=== PATIENT | male | born 1965 | race Hispanic/Latino ===

== ENCOUNTER 2019-01-16 20:10 | Inpatient (IN) | payer BC ==
[~2019-01-16] VITALS: Ht 167.6 cm; Wt 89.4 kg
[~2019-01-16 20:10] MED LIST: PROTONIX40 MG PO; Pantoprazole Sod IV
--- OUTSIDE RECORDS SUMMARY | 2019-01-16 20:15 | XMS REPORT | CCD ---
Author Author Auto Generated Organization [facility] Address Unknown Phone Unavailable Care Team Providers Care Telemetry Nurse Name Role Phone Eleanor Stafford CP Allergies, Adverse Reactions, Alerts Substance Reaction Status ibuprofen GI bleeding in 2009 Active penicillin Active Problem List Condition Effective Dates Status GI bleeding Active Medications Medication Instructions Start Date End Date Status pantoprazole 80 mg + 100 mL, Rate: 10 ml/hr, Infuse 04/16/2012 04/17/2012 Discontinued Sodium Chloride 0.9% over: 10 hr, Route: IV, kg, Total IV 100 mL Volume: 100, Start date: 04/16/12 23:46:00, Duration: 30 day, Stop date: 05/16/12 23:45:00 [place] 5/325 oral 1 tab, Route: PO, Drug Form: TAB, 04/17/2012 04/17/2012 Discontinued tablet Dosing Weight 82.273, kg, Q4H, PRN Pain, Start date: 04/17/12 9:32:00, Duration: 30 day, Stop date: 05/17/12 9:31:00 Tears Naturale 1 drp, Route: Each Affected Eye, 04/17/2012 04/17/2012 Discontinued TID, Drug form: SOLN, Start date: 04/17/12 13:00:00, Duration: 30 day, Stop date: 05/17/12 9:00:00 NS (Bolus) IV 1,000 1,000 mL, Rate: 1,000 ml/hr, Infuse 04/16/2012 04/17/2012 Discontinued mL over: 1 hr, Route: IV, kg, Total Volume: 1,000, Start date: 04/16/12 20:29:00, Duration: 30 day, Stop date: 05/16/12 20:28:00 NS (Bolus) IV 1,000 1,000 mL, Rate: 1,000 ml/hr, Infuse 04/16/2012 04/16/2012 Completed mL over: 1 hr, Route: IV, kg, Total Volume: 1,000, Start date: 04/16/12 22:34:00, Duration: 1 doses or times, Stop date: 04/16/12 23:33:00 Protonix 40 mg, Route: IVP, Drug form: INJ, 04/16/2012 04/16/2012 Completed ONCE, Dosing Weight 82.273, kg, Priority: STAT, Start date: 04/16/12 20:52:00, Stop date: 04/16/12 20:52:00 Vital Signs Most recent to oldest [Reference Range]: 1 2 3 Height 167.64 cm (04/16/2012 17:12:00) Temperature Oral [96.4-99.1 DegF] 98.2 DegF (04/17/2012 14:00:00) 98.1 DegF (04/17/2012 07:00:00) Systolic Blood Pressure [90-140 mmHg] 105 mmHg (04/17/2012 14:00:00) 105 mmHg (04/17/2012 07:00:00) 102 mmHg (04/17/2012 04:10:00) Diastolic Blood Pressure [60-90 mmHg] 63 mmHg (04/17/2012 14:00:00) 66 mmHg (04/17/2012 07:00:00) 65 mmHg (04/17/2012 04:10:00) Respiratory Rate [14-20 BRMIN] 18 BRMIN (04/17/2012 14:00:00) 20 BRMIN (04/17/2012 07:00:00) 18 BRMIN (04/17/2012 04:10:00) Peripheral Pulse Rate [60-100 bpm] 85 bpm (04/17/2012 14:00:00) 88 bpm (04/17/2012 07:00:00) 74 bpm (04/17/2012 04:10:00) Weight 82.273 kg (04/16/2012 17:12:00) Results URINALYSIS Most recent to oldest [Reference Range]: 1 2 3 UA Turbidity [Clear] Clear (04/16/2012 20:55:00) UA Color [Yellow] Yellow *NA* (04/16/2012 20:55:00) UA pH [5.0-8.0] 5.5 (04/16/2012 20:55:00) UA Spec Grav [<=1.030] 1.033 *NA* (04/16/2012 20:55:00) UA Glucose [Negative] Negative (04/16/2012 20:55:00) UA Blood [Negative] Negative (04/16/2012 20:55:00) UA Ketones [Negative] Negative *NA* (04/16/2012 20:55:00) UA Protein [Negative] Negative (04/16/2012 20:55:00) UA Urobilinogen [0.1-1.0 EU/dL] 0.2 EU/dL (04/16/2012 20:55:00) UA Bili [Negative] Negative *NA* (04/16/2012 20:55:00) UA Leuk Est [Negative] Negative (04/16/2012 20:55:00) UA Nitrite [Negative] Negative (04/16/2012 20:55:00) UA Sq Epi [Few /LPF] Rare /LPF (04/16/2012 20:55:00) Micro? Performed (04/16/2012 20:55:00) CHEMISTRY Most recent to oldest [Reference Range]: 1 2 3 Sodium Lvl [135-145 mEq/L] 144 mEq/L 1 (04/16/2012:15:00) Potassium Lvl [3.5-5.1 mEq/L] 3.9 mEq/L (04/16/2012 21:15:00) Chloride Lvl [95-109 mEq/L] 108 mEq/L (04/16/2012:15:00) CO2 [24-32 mEq/L] 24 mEq/L (04/16/2012 21:15:00) AGAP [10.0-20.0 mEq/L] 15.9 mEq/L (04/16/2012 21:15:00) Creatinine Lvl [0.5-1.4 mg/dL] 0.9 mg/dL (04/16/2012 21:15:00) eGFR 104 mL/min/1.73m2 2 *NA* (04/16/2012 21:15:00) BUN [7-22 mg/dL] 24 mg/dL *HI* (04/16/2012 21:15:00) B/C Ratio [6-25] 27 *HI* (04/16/2012:15:00) Glucose Lvl [70-99 mg/dL] 113 mg/dL 3 *HI* (04/16/2012:15:00) Total Protein [6.4-8.4 g/dL] 6.6 g/dL (04/16/2012:15:00) Albumin Lvl [3.5-5.0 g/dL] 3.8 g/dL (04/16/2012:15:00) Globulin [2.0-4.0 g/dL] 2.8 g/dL (04/16/2012:15:00) A/G Ratio [0.7-1.6] 1.4 (04/16/2012:15:00) Calcium Lvl [8.5-10.5 mg/dL] 8.0 mg/dL *LOW* (04/16/2012:15:00) ALT [0-65 unit/L] 27 unit/L (04/16/2012:15:00) AST [0-37 unit/L] 17 unit/L (04/16/2012:15:00) Alk Phos [39-136 unit/L] 78 unit/L (04/16/2012:15:00) Bili Total [0.2-1.3 mg/dL] 0.2 mg/dL (04/16/2012:15:00) 1Result Comment: Slightly lipemic sample. 2Result Comment: The eGFR is calculated using the CKD-EPI formula. In most young, healthy individuals the eGFR will be >90 mL/min/1.73m2. The eGFR declines with age. An eGFR of 60-89 may be normal in some populations, particularly the elderly, for whom the CKD-EPI formula has not been extensively validated. Use of the eGFR is not recommended in the following populations: Individuals with unstable creatinine concentrations, including patients and those with serious co-morbid conditions. Patients with extremes in muscle mass or diet. The data above are obtained from the National Kid[employer] Disease Education Program ( NKDEP) which additionally recommends that when the eGFR is used in patients with extremes of body mass index for purposes of drug dosing, the eGFR should be mul tiplied by the estimated BMI. 3Interpretive Data: Adult reference range values reflect the clinical guidelines of the [place] [employer]. HEMATOLOGY Most recent to oldest [Reference Range]: 1 2 3 WBC [3.7-10.4 K/CMM] 7.8 K/CMM (04/16/2012 21:15:00) RBC [4.70-6.10 M/CMM] 3.36 M/CMM *LOW* (04/16/2012:15:00) Hgb [14.0-18.0 g/dL] 8.5 g/dL *LOW* (04/17/2012 16:08:00) 8.9 g/dL *LOW* (04/17/2012 09:53:00) 8.2 g/dL *LOW* (04/17/2012 04:10:00) Hct [42.0-54.0 %] 23.8 % *LOW* (04/17/2012 16:08:00) 25.4 % *LOW* (04/17/2012 09:53:00) 23.3 % *LOW* (04/17/2012 04:10:00) MCV [80.0-94.0 fL] 89.3 fL (04/16/2012:15:00) MCH [27.0-31.0 pg] 31.6 pg *HI* (04/16/2012:15:00) MCHC [32.0-36.0 g/dL] 35.4 g/dL (04/16/2012:15:00) RDW [11.5-14.5 %] 12.3 % (04/16/2012:15:00) Platelet [133-450 K/CMM] 237 K/CMM (04/16/2012 21:15:00) MPV [7.4-10.4 fL] 8.7 fL (04/16/2012:15:00) Segs [45.0-75.0 %] 62.9 % (04/16/2012:15:00) Lymphocytes [20.0-40.0 %] 24.0 % (04/16/2012:15:00) Monocytes [2.0-12.0 %] 10.1 % (04/16/2012 21:15:00) Eosinophils [0.0-4.0 %] 2.2 % (04/16/2012 21:15:00) Basophils [0.0-1.0 %] 0.8 % (04/16/2012:15:00) Segs-Bands # [1.5-8.1 K/CMM] 4.8 K/CMM (04/16/2012:15:00) Lymphocytes # [1.0-5.5 K/CMM] 1.9 K/CMM (04/16/2012 21:15:00) Monocytes # [0.0-0.8 K/CMM] 0.8 K/CMM (04/16/2012 21:15:00) Eosinophils # [0.0-0.5 K/CMM] 0.2 K/CMM (04/16/2012:15:00) Basophils # [0.0-0.2 K/CMM] 0.1 K/CMM (04/16/2012 21:15:00) Polychrom [None Seen] Slight (04/16/2012:15:00) Hypochrom [None Seen] Slight (04/16/2012 21:15:00) Target Cell Occasional *NA* (04/16/2012:15:00) Neut Vac [None Seen] Slight *ABN* (04/16/2012:15:00) Large Plt [None Seen] Slight *ABN* (04/16/2012:15:00) PT [12.0-14.7 seconds] 14.6 seconds (04/17/2012 04:10:00) 12.4 seconds (04/16/2012 21:15:00) INR [0.85-1.17] 1.12 4 (04/17/2012 04:10:00) 0.90 5 (04/16/2012 21:15:00) PTT [22.9-35.8 seconds] 27.4 seconds 6 (04/17/2012 04:10:00) 27.7 seconds 7 (04/16/2012 21:15:00) 4Interpretive Data: RECOMMENDED RANGES FOR PROTIME INR: 2.0-3.0 for most medical and surgical thromboembolic states. 2.5-3.5 for artificial heart valves and recurrent embolism. INR SHOULD BE USED ONLY FOR PATIENTS ON STABLE ANTICOAGULANT THERAPY. 5Interpretive Data: RECOMMENDED RANGES FOR PROTIME INR: 2.0-3.0 for most medical and surgical thromboembolic states. 2.5-3.5 for artificial heart valves and recurrent embolism. INR SHOULD BE USED ONLY FOR PATIENTS ON STABLE ANTICOAGULANT THERAPY. 6Interpretive Data: Heparin Therapeutic Range: 57 - 92 Seconds 7Interpretive Data: Heparin Therapeutic Range: 57 - 92 Seconds IMMUNOLOGY Most recent to oldest [Reference Range]: 1 2 3 CDC-HIV 1/2 Ab [Negative] Negative *NA* (04/16/2012 17:22:00)
--- OUTSIDE RECORDS SUMMARY | 2019-01-16 20:15 | XMS REPORT | Continuity of Care Document ---
Author Author [employer] Organization [employer] Address Unknown Phone Unavailable Care Team Providers Care Pick Up Name Role Phone Run [employer] Unavailable Unavailable Problems Problem Status Onset Date Classification Date Reported Comments Source HEAD LAC Active 07/12/2018 [facility] Laceration without foreign body of scalp, initial encounter 07/12/2018 07/14/2018 [facility] Unspecified injury of head, initial encounter 07/12/2018 07/14/2018 [facility] Low back pain 07/12/2018 07/14/2018 [facility] Melena 11/11/2016 11/14/2016 [facility] GI BLEED Active 11/10/2016 [facility] F/U FROM HOSPITAL, YEARLY CHECK UP Active 05/04/2012 [facility] BLOOD IN STOOL Active 04/15/2012 [facility] Gastrointestinal hemorrhage (disorder) Resolved Problem 07/14/2018 [facility] GI bleeding Active Problem 04/19/2012 [facility] GASTROINTEST HEMORR NOS Active [facility] Medications Medication Details Route Status Patient Instructions Ordering Provider Order Date Source Acetaminophen 300 MG / Codeine Phosphate 30 MG Oral Tablet [Tylenol with Codeine #3] 1 tab, PO, Q6H, PRN Pain Score 4-6, X 5 day, # 30 tab, 0 Refill(s) Active 07/12/2018 [facility] Acetaminophen 325 MG / Hydrocodone Bitartrate 10 MG Oral Tablet [[place] 10/325] 1 tab, Route: PO, Drug Form: TAB, Dosing Weight 88.636, kg, ONCE, STAT, Start date: 07/12/18 10:14:00 MULE OPERATOR, Stop date: 07/12/18 10:14:00 CSTNotes: Do not exceed 4gm/day of acetaminophen. (Same as: [place] 325/10) Inactive 07/12/2018 [facility] pantoprazole 40 MG Enteric Coated Tablet [Protonix] 40 mg=1 tab, PO, Daily, # 30 tab, 0 Refill(s) Active 11/11/2016 [facility] Protonix 40 mg, Route: IVP, ONCE, Dosing Weight 88.636, kg, Priority: STAT, Start date: 11/11/16 0:35:00 CDT, Stop date: 11/11/16 0:35:00 CDT Inactive 11/11/2016 [facility] Tears Naturale 1 drp, Route: Each Affected Eye, TID, Drug form: SOLN, Start date: 04/17/12 13:00:00, Duration: 30 day, Stop date: 05/17/12 9:00:00 Each Affected Eye No Longer Active Rivera 04/17/2012 [facility] [place] 5/325 oral tablet 1 tab, Route: PO, Drug Form: TAB, Dosing Weight 82.273, kg, Q4H, PRN Pain, Start date: 04/17/12 9:32:00, Duration: 30 day, Stop date: 05/17/12 9:31:00 PO No Longer Active Rivera 04/17/2012 [facility] pantoprazole 80 mg + Sodium Chloride 0.9% IV 100 mL 100 mL, Rate: 10 ml/hr, Infuse over: 10 hr, Route: IV, kg, Total Volume: 100, Start date: 04/16/12 23:46:00, Duration: 30 day, Stop date: 05/16/12 23:45:00 IV No Longer Active Roel 04/17/2012 [facility] NS (Bolus) IV 1,000 mL 1,000 mL, Rate: 1,000 ml/hr, Infuse over: 1 hr, Route: IV, kg, Total Volume: 1,000, Start date: 04/16/12 22:34:00, Duration: 1 doses or times, Stop date: 04/16/12 23:33:00 IV No Longer Active Matthew 04/17/2012 [facility] Protonix 40 mg, Route: IVP, Drug form: INJ, ONCE, Dosing Weight 82.273, kg, Priority: STAT, Start date: 04/16/12 20:52:00, Stop date: 04/16/12 20:52:00 IVP No Longer Active Matthew 04/17/2012 [facility] NS (Bolus) IV 1,000 mL 1,000 mL, Rate: 1,000 ml/hr, Infuse over: 1 hr, Route: IV, kg, Total Volume: 1,000, Start date: 04/16/12 20:29:00, Duration: 30 day, Stop date: 05/16/12 20:28:00 IV No Longer Active Matthew 04/17/2012 [facility] Allergies, Adverse Reactions, Alerts Substance Category Reaction Severity Reaction type Status Date Reported Comments Source ibuprofen Assertion GI bleeding in 2009 Propensity to adverse reactions to drug Active [facility] penicillin Assertion Drug allergy Active [facility] Immunizations Immunization Date Given Site Status Last Updated Comments Source diphtheria/pertussis, acel/tetanus adult 07/12/2018 Right deltoid completed [place] [facility] Results Order Name Results Value Reference Range Date Interpretation Comments Source BLOOD BANK RESULTS ABO/Rh O POS 11/11/2016 [facility] CHEM PANEL A/G Ratio 1.1 0.7 - 1.6 11/11/2016 [facility] CHEM PANEL Globulin 3.5 2.7 - 4.2 11/11/2016 [facility] CHEM PANEL B/C Ratio 15 6 - 25 11/11/2016 [facility] CHEM PANEL AGAP 9.1 10.0 - 20.0 11/11/2016 [facility] CHEM PANEL Potassium Lvl 4.1 3.5 - 5.1 11/11/2016 [facility] CHEM PANEL CO2 26 24 - 32 11/11/2016 [facility] CHEM PANEL Chloride Lvl 107 95 - 109 11/11/2016 [facility] PANEL eGFR 79 11/11/2016 Result Comment: The eGFR is calculated using the [...] from the National Kidney Disease Education Program (NKDEP) which additionally recommends that when the eGFR is used in patients with extremes of body mass index for purposes of drug dosing, the eGFR should be multiplied by the estimated BMI. [facility] CHEM PANEL BUN 16 7 - 22 11/11/2016 [facility] CHEM PANEL Glucose Lvl 110 70 - 99 11/11/2016 [facility] CHEM PANEL Sodium Lvl 138 135 - 145 11/11/2016 [facility] CHEM PANEL Creatinine Lvl 1.10 0.50 - 1.40 11/11/2016 [facility] CHEM PANEL Total Protein 7.5 6.4 - 8.4 11/11/2016 [facility] CHEM PANEL Calcium Lvl 8.9 8.5 - 10.5 11/11/2016 [facility] CHEM PANEL Bili Total 0.8 0.2 - 1.3 11/11/2016 [facility] CHEM PANEL ALT 28 0 - 65 11/11/2016 [facility] CHEM PANEL Albumin Lvl 4.0 3.5 - 5.0 11/11/2016 [facility] CHEM PANEL Alk Phos 85 39 - 136 11/11/2016 [facility] CHEM PANEL AST 25 0 - 37 11/11/2016 [facility] CHEM PANEL Lipase Lvl 222 73 - 393 11/11/2016 [facility] HEMATOLOGY Basophils # 0.1 0.0 - 0.2 11/11/2016 [facility] HEMATOLOGY Eosinophils # 0.1 0.0 - 0.5 11/11/2016 [facility] HEMATOLOGY Segs-Bands # 3.6 1.5 - 8.1 11/11/2016 [facility] HEMATOLOGY Lymphocytes # 1.8 1.0 - 5.5 11/11/2016 [facility] HEMATOLOGY Monocytes # 0.6 0.0 - 0.8 11/11/2016 [facility] HEMATOLOGY Eosinophils 1.6 0.0 - 4.0 11/11/2016 [facility] HEMATOLOGY Basophils 0.9 0.0 - 1.0 11/11/2016 [facility] HEMATOLOGY Monocytes 9.9 2.0 - 12.0 11/11/2016 [facility] HEMATOLOGY Segs 58.1 45.0 - 75.0 11/11/2016 [facility] HEMATOLOGY Lymphocytes 29.5 20.0 - 40.0 11/11/2016 [facility] HEMATOLOGY INR 1.03 0.85 - 1.17 11/11/2016 [facility] HEMATOLOGY PT 13.7 12.0 - 14.7 11/11/2016 [facility] HEMATOLOGY PTT 30.3 22.9 - 35.8 11/11/2016 [facility] HEMATOLOGY WBC 6.2 3.7 - 10.4 11/11/2016 [facility] HEMATOLOGY MCV 89.1 80.0 - 94.0 11/11/2016 [facility] HEMATOLOGY Hgb 14.9 14.0 - 18.0 11/11/2016 [facility] HEMATOLOGY Hct 43.2 42.0 - 54.0 11/11/2016 [facility] HEMATOLOGY RBC 4.85 4.70 - 6.10 11/11/2016 [facility] HEMATOLOGY MPV 8.1 7.4 - 10.4 11/11/2016 [facility] MCH 30.7 27.0 - 31.0 11/11/2016 [facility] MCHC 34.5 32.0 - 36.0 11/11/2016 [facility] HEMATOLOGY RDW 13.5 11.5 - 14.5 11/11/2016 [facility] HEMATOLOGY Platelet 232 133 - 450 11/11/2016 [facility] URINE AND STOOL Occult Bld Stl Positive *ABN* (11/10/16 10:57 PM) Negative 11/11/2016 [facility] HEMATOLOGY Hct 23.8 42.0 - 54.0 04/17/2012 LOW [facility] HEMATOLOGY Hgb 8.5 14.0 - 18.0 04/17/2012 [facility] HEMATOLOGY Hgb 8.9 14.0 - 18.0 04/17/2012 [facility] HEMATOLOGY Hct 25.4 42.0 - 54.0 04/17/2012 [facility] HEMATOLOGY Hgb 8.2 14.0 - 18.0 04/17/2012 [facility] HEMATOLOGY Hct 23.3 42.0 - 54.0 04/17/2012 [facility] HEMATOLOGY PTT 27.4 22.9 - 35.8 04/17/2012 Normal <sup>6</sup>Interpretive Data: Heparin Therapeutic Range: 57 - 92 Seconds [facility] HEMATOLOGY INR 1.12 0.85 - 1.17 04/17/2012 Normal <sup>4</sup>Interpretive Data: RECOMMENDED RANGES FOR PROTIME INR:
2.0-3.0 for most medical and surgical thromboembolic states.
2.5-3.5 for artificial heart valves and recurrent embolism.

INR SHOULD BE USED ONLY FOR PATIENTS ON STABLE ANTICOAGULANT THERAPY. [facility] HEMATOLOGY PT 14.6 12.0 - 14.7 04/17/2012 Normal [facility] CHEMISTRY Alk Phos 78 39 - 136 04/17/2012 Normal [facility] CHEMISTRY ALT 27 0 - 65 04/17/2012 Normal [facility] CHEMISTRY Bili Total 0.2 0.2 - 1.3 04/17/2012 Normal [facility] CHEMISTRY AST 17 0 - 37 04/17/2012 Normal [facility] CHEMISTRY Total Protein 6.6 6.4 - 8.4 04/17/2012 Normal [facility] CHEMISTRY Albumin Lvl 3.8 3.5 - 5.0 04/17/2012 Normal [facility] CHEMISTRY eGFR 104 04/17/2012 NA <sup>2</sup>Result Comment: The eGFR is calculated using the CKD-EPI formula. In most young, healthy individuals the eGFR will be >90 mL/min/1.73m2. The eGFR declines with age. An eGFR of 60-89 may be normal in some populations, particularly the elderly, for whom the CKD-EPI formula has not been extensively validated. Use of the eGFR is not recommended in the following populations:& lt;br/>
Individuals with unstable creatinine concentrations, including patients and those with serious co-morbid conditions.

Patients with extremes in muscle mass or diet.

The data above are obtained from the National Kidney Disease Education Program (NKDEP) which additionally recommends that when the eGFR is used in patients with extremes of body mass index for purposes of drug dosing, the eGFR should be multiplied by the estimated BMI. [facility] CHEMISTRY Calcium Lvl 8.0 8.5 - 10.5 04/17/2012 LOW [facility] CHEMISTRY CO2 24 24 - 32 04/17/2012 Normal [facility] CHEMISTRY Chloride Lvl 108 95 - 109 04/17/2012 Normal [facility] CHEMISTRY Potassium Lvl 3.9 3.5 - 5.1 04/17/2012 Normal [facility] CHEMISTRY BUN 24 7 - 22 04/17/2012 HI [facility] CHEMISTRY Sodium Lvl 144 135 - 145 04/17/2012 Normal <sup>1</sup>Result Comment: Slightly lipemic sample. [facility] CHEMISTRY Creatinine Lvl 0.9 0.5 - 1.4 04/17/2012 Normal [facility] CHEMISTRY Glucose Lvl 113 70 - 99 04/17/2012 HI <sup>3</sup>Interpretive Data: Adult reference range values reflect the clinical guidelines
of the [place] [employer]. [facility] CHEMISTRY A/G Ratio 1.4 0.7 - 1.6 04/17/2012 Normal [facility] CHEMISTRY Globulin 2.8 2.0 - 4.0 04/17/2012 Normal [facility] CHEMISTRY AGAP 15.9 10.0 - 20.0 04/17/2012 Normal [facility] CHEMISTRY B/C Ratio 27 6 - 25 04/17/2012 HI [facility] HEMATOLOGY Large Plt Slight *ABN* (04/16/2012 21:15:00) None Seen 04/17/2012 ABN [facility] HEMATOLOGY Neut Vac Slight *ABN* (04/16/2012 21:15:00) None Seen 04/17/2012 ABN [facility] HEMATOLOGY Segs 62.9 45.0 - 75.0 04/17/2012 Normal [facility] HEMATOLOGY Eosinophils 2.2 0.0 - 4.0 04/17/2012 Normal [facility] HEMATOLOGY Segs-Bands # 4.8 1.5 - 8.1 04/17/2012 Normal [facility] HEMATOLOGY Basophils 0.8 0.0 - 1.0 04/17/2012 Normal [facility] HEMATOLOGY Monocytes 10.1 2.0 - 12.0 04/17/2012 Normal [facility] HEMATOLOGY Lymphocytes 24.0 20.0 - 40.0 04/17/2012 Normal [facility] HEMATOLOGY Basophils # 0.1 0.0 - 0.2 04/17/2012 Normal [facility] HEMATOLOGY Hypochrom Slight (04/16/2012 21:15:00) None Seen 04/17/2012 Normal [facility] HEMATOLOGY Polychrom Slight (04/16/2012 21:15:00) None Seen 04/17/2012 Normal [facility] HEMATOLOGY Target Cell Occasional 04/17/2012 NA [facility] HEMATOLOGY Monocytes # 0.8 0.0 - 0.8 04/17/2012 Normal [facility] HEMATOLOGY Lymphocytes # 1.9 1.0 - 5.5 04/17/2012 Normal [facility] HEMATOLOGY Eosinophils # 0.2 0.0 - 0.5 04/17/2012 Normal [facility] HEMATOLOGY INR 0.90 0.85 - 1.17 04/17/2012 Normal <sup>5</sup>Interpretive Data: RECOMMENDED RANGES FOR PROTIME INR:
2.0-3.0 for most medical and surgical thromboembolic states.
2.5-3.5 for artificial heart valves and recurrent embolism.

INR SHOULD BE USED ONLY FOR PATIENTS ON STABLE ANTICOAGULANT THERAPY. [facility] HEMATOLOGY PTT 27.7 22.9 - 35.8 04/17/2012 Normal <sup>7</sup>Interpretive Data: Heparin Therapeutic Range: 57 - 92 Seconds [facility] HEMATOLOGY PT 12.4 12.0 - 14.7 04/17/2012 Normal [facility] HEMATOLOGY MCV 89.3 80.0 - 94.0 04/17/2012 Normal [facility] HEMATOLOGY RBC 3.36 4.70 - 6.10 04/17/2012 LOW [facility] HEMATOLOGY MCH 31.6 27.0 - 31.0 04/17/2012 HI [facility] HEMATOLOGY RDW 12.3 11.5 - 14.5 04/17/2012 Normal [facility] HEMATOLOGY MCHC 35.4 32.0 - 36.0 04/17/2012 Normal [facility] HEMATOLOGY WBC 7.8 3.7 - 10.4 04/17/2012 Normal [facility] HEMATOLOGY Platelet 237 133 - 450 04/17/2012 Normal [facility] HEMATOLOGY MPV 8.7 7.4 - 10.4 04/17/2012 Normal [facility] URINALYSIS UA Nitrite Negative (04/16/2012 20:55:00) Negative 04/17/2012 Normal [facility] URINALYSIS UA Leuk Est Negative (04/16/2012 20:55:00) Negative 04/17/2012 Normal [facility] URINALYSIS UA Sq Epi Rare /LPF (04/16/2012 20:55:00) Few 04/17/2012 Normal [facility] URINALYSIS Micro? Performed (04/16/2012 20:55:00) 04/17/2012 Normal [facility] URINALYSIS UA Urobilinogen 0.2 0.1 - 1.0 04/17/2012 Normal [facility] URINALYSIS UA Glucose Negative (04/16/2012 20:55:00) Negative 04/17/2012 Normal [facility] URINALYSIS UA Ketones Negative *NA* (04/16/2012 20:55:00) Negative 04/17/2012 [facility] URINALYSIS UA Spec Grav 1.033 <=1.030 04/17/2012 NA [facility] URINALYSIS UA pH 5.5 5.0 - 8.0 04/17/2012 Normal [facility] URINALYSIS UA Bili Negative *NA* (04/16/2012 20:55:00) Negative 04/17/2012 [facility] URINALYSIS UA Blood Negative (04/16/2012 20:55:00) Negative 04/17/2012 Normal [facility] URINALYSIS UA Protein Negative (04/16/2012 20:55:00) Negative 04/17/2012 Normal [facility] URINALYSIS UA Turbidity Clear (04/16/2012 20:55:00) Clear 04/17/2012 Normal [facility] URINALYSIS UA Color Yellow *NA* (04/16/2012 20:55:00) Yellow 04/17/2012 [facility] IMMUNOLOGY CDC-HIV 1/2 Ab Negative *NA* (04/16/2012 17:22:00) Negative 04/16/2012 [facility] Pathology Reports No Data Provided for This Section Diagnostic Reports Report Value Date Source Spine lumbar 2 or 3 views DX Study: Lumbar spine, 3 views Clinical Indication: Low back pain post fall Comparison: None FINDINGS: AP and crosstable lateral images demonstrate normal vertebral alignment. No fracture is identified. Intervertebral disc spaces are maintained. There are small marginal osteophytes at L3-L4 and L4-L5. Sacroiliac joints are not remarkable. IMPRESSION: No acute abnormality. SL: [id number] 07/12/2018 [facility] Sacrum/coccyx series DX Sacrum and coccyx 3 views: HISTORY: Fall. FINDINGS: Normal alignment of SI joints. Body of sacrum and coccyx appear intact without fracture or subluxation. SL: [id number] 07/12/2018 [facility] Pelvis AP DX Study: Pelvis, single view Clinical Indication: Pelvic pain post fall Comparison: None FINDINGS: Single frontal view of the pelvis shows no acute displaced bony fracture or joint dislocation. Soft tissues are unremarkable. IMPRESSION: No acute bony abnormality of the pelvis. SL: [id number] 07/12/2018 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 COMPARISON: None TECHNIQUE: CT images were obtained from the foramen magnum to the vertex without the use of intravenous contrast on a multidetector CT. Coronal and sagittal reconstructions were obtained. CT imaging performed at this location utilizes radiation dose optimization techniques which include one or more of the following: -Automated exposure control -Adjustment of the mA and/or kV according to patient size -Use of iterative reconstruction technique CT Radiation Dose DLP 982.82 mGy-cm FINDINGS: BRAIN PARENCHYMA: There are normal foster-white interfaces, sulci and gyri. There is no mass effect or midline shift. There is no extra-axial fluid collection, intraventricular or intraparenchymal hemorrhage. The sella and pineal regions are normal. The skull base, cerebellum and brainstem are normal. VENTRICLES: The ventricles are normal in size and configuration. The basilar cisterns are normal. ORBITS, MASTOIDS AND PARANASAL SINUSES: The visualized orbits are normal. The paranasal sinuses are normal. The mastoid air cells are clear. SKULL: Posterior soft tissue swelling . There is subcutaneous emphysema in this region. The calvaria appears intact. There is no acute fracture. If there is further concern for intracranial pathology or acute stroke, MRI of the brain may be performed for complete assessment. IMPRESSION: No acute intracranial bleed, midline shift or mass effect. SL: [id number] 07/12/2018 [facility] Spine cervical wo contrast CT Study: Spine cervical wo contrast CT Clinical Indication: Neck pain post fall Comparison: None Technique: Multiple axial CT images of the cervical spine were performed without the administration of intravenous contrast. Coronal and sagittal reconstructions were obtained. CT Radiation Dose DLP 720.41 mGy-cm FINDINGS: Anatomic alignment is maintained across the cervical spine. No acute fracture or dislocation is seen. Scattered mild degenerative disc disease and facet arthrosis of the cervical spine is seen. There is no spinal canal stenosis or neural foraminal narrowing. Paravertebral soft tissues are unremarkable. The lung apices are clear. IMPRESSION: 1. No acute bony abnormality of the cervical spine. SL: [id number] 07/12/2018 [facility] Chest 1view DX EXAM: Chest 1view DX DATE: 07/12/2018 10:13 MULE OPERATOR INDICATION: Trauma - fall COMPARISON: 02/08/2010. IMPRESSION: Stable cardiac silhouette and mediastinum. No focal consolidation, significant pleural effusion or pneumothorax. SL: [id number] 07/12/2018 [facility] Consultation Notes No Data Provided for This Section Discharge Summaries No Data Provided for This Section History and Physicals No Data Provided for This Section Vital Signs Vital Sign Value Date Comments Source Systolic (mm Hg) 116 07/12/2018 [facility] Diastolic (mm Hg) 79 07/12/2018 [facility] Respitory Rate 16 07/12/2018 [facility] Heart Rate 80 07/12/2018 [facility] Temperature Oral (F) 98 F 07/12/2018 [facility] Height 167.64 cm 07/12/2018 [facility] Weight 88.636 07/12/2018 [facility] BMI Calculated 31.54 07/12/2018 [facility] Respitory Rate 18 07/12/2018 [facility] Heart Rate 76 07/12/2018 [facility] Systolic (mm Hg) 129 07/12/2018 [facility] Diastolic (mm Hg) 85 07/12/2018 [facility] Temperature Oral (F) 98.0 F 07/12/2018 [facility] Respitory Rate 12 11/11/2016 [facility] Temperature Oral (F) 98 F 11/11/2016 [facility] Systolic (mm Hg) 122 11/11/2016 [facility] Diastolic (mm Hg) 91 11/11/2016 [facility] Systolic (mm Hg) 126 11/11/2016 [facility] Diastolic (mm Hg) 68 11/11/2016 [facility] Respitory Rate 10 11/11/2016 [facility] BMI Calculated 31.54 11/11/2016 [facility] Weight 88.636 11/11/2016 [facility] Height 167.64 cm 11/11/2016 [facility] Respitory Rate 18 11/11/2016 [facility] Temperature Oral (F) 98.4 F 11/11/2016 [facility] Heart Rate 62 11/11/2016 [facility] Systolic (mm Hg) 130 11/11/2016 [facility] Diastolic (mm Hg) 81 11/11/2016 [facility] Systolic (mm Hg) 105 04/17/2012 [facility] Respitory Rate 18 04/17/2012 [facility] Heart Rate 85 04/17/2012 [facility] Temperature Oral (F) 98.2 F 04/17/2012 [facility] Diastolic (mm Hg) 63 04/17/2012 [facility] Diastolic (mm Hg) 66 04/17/2012 [facility] Temperature Oral (F) 98.1 F 04/17/2012 [facility] Heart Rate 88 04/17/2012 [facility] Respitory Rate 20 04/17/2012 [facility] Systolic (mm Hg) 105 04/17/2012 [facility] Heart Rate 74 04/17/2012 [facility] Respitory Rate 18 04/17/2012 [facility] Systolic (mm Hg) 102 04/17/2012 [facility] Diastolic (mm Hg) 65 04/17/2012 [facility] Weight 82.273 04/16/2012 [facility] Height 167.64 cm 04/16/2012 [facility] Encounters Location Location Details Encounter Type Encounter Number Reason For Visit Attending Provider ADM Date DC Date Status Source [facility] OU [id number] SHELBY BURRIS 04/16/2012 04/17/2012 Discharged [facility] Emergency [id number] Reejan Matthew 11/11/2016 11/11/2016 [facility] Emergency [id number] Cat Rachel 07/12/2018 07/12/2018 [facility] Outpatient [id number] F/U FROM HOSPITAL, YEARLY CHECK UP ELSI Pulido [facility] Procedures No Data Provided for This Section Assessment and Plan No Data Provided for This Section Plan of Care No Data Provided for This Section Social History Social History Date Source Social History TypeResponse Smoking Status Never smoker; Ready to change: No; Concerns about tobacco use in household: No; Exposure to Tobacco Smoke None; Cigarette Smoking Last 365 Days No; Reg Smoking Cessation Counseling No entered on: 07/12/18 07/12/2018 [facility] Family History No Data Provided for This Section Advance Directives No Data Provided for This Section Functional Status No Data Provided for This Section
--- OUTSIDE RECORDS SUMMARY | 2019-01-16 20:16 | XMS REPORT | Summary of Care ---
Author Author [facility] Organization [facility] Address Unknown Phone Unavailable Encounter HQ Cordelia(FIN) [id number] Date(s): 07/12/18 - 07/12/18 [facility] [address] [place] [address]- [phone] Encounter Diagnosis Laceration of scalp (Discharge Diagnosis) - 07/12/18 Acute head injury (Discharge Diagnosis) - 07/12/18 Lower back pain (Discharge Diagnosis) - 07/12/18 Discharge Disposition: Home or Self Care Attending Physician: Mary Rachel DO Vital Signs Most recent to 1 2 oldest [Reference Range]: Height 167.64 cm (07/12/18 9:58 AM) Temperature Oral 98 DegF 98.0 DegF [96.4-99.1 DegF] (07/12/18 2:58 PM) (07/12/18 9:58 AM) Blood Pressure 116/79 mmHg 129/85 mmHg [90-140/60-90 mmHg] (07/12/18 2:58 PM) (07/12/18 9:58 AM) Respiratory Rate 16 BRMIN 18 BRMIN [14-20 BRMIN] (07/12/18 2:58 PM) (07/12/18 9:58 AM) Peripheral Pulse 80 bpm 76 bpm Rate [60-100 bpm] (07/12/18 2:58 PM) (07/12/18 9:58 AM) Weight 88.636 kg (07/12/18 9:58 AM) Body Mass Index 31.54 m2 (07/12/18 9:58 AM) Problem List Condition Effective Dates Status Health Status Informant GI bleed(Confirmed) Resolved GI Active bleeding(Confirmed) Allergies, Adverse Reactions, Alerts Substance Reaction Severity Status ibuprofen GI bleeding in 2009 Active penicillin Active Medications [place] 10/325 oral tablet 1 tab, Route: PO, Drug Form: TAB, Dosing Weight 88.636, kg, ONCE, STAT, Start da te: 07/12/18 10:14:00 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 (Same as: [place] 325/10) Start Date: 07/12/18 Stop Date: 07/12/18 Status: Completed Tylenol with Codeine #3 oral tablet 1 tab, PO, Q6H, PRN Pain Score 4-6, X 5 day, # 30 tab, 0 Refill(s) Start Date: 07/12/18 Stop Date: 07/17/18 Status: Ordered Results No data available for this section Immunizations Given and Recorded Vaccine Date Status Refusal Reason diphtheria/pertussis, acel/tetanus adult 07/12/18 Given Procedures No data available for this section Social History Social History Type Response Smoking Status Never smoker; Ready to change: No; Concerns about tobacco use in household: No; Exposure to Tobacco Smoke None; Cigarette Smoking Last 365 Days No; Reg Smoking Cessation Counseling No entered on: 07/12/18 Assessment and Plan No data available for this section
--- OUTSIDE RECORDS SUMMARY | 2019-01-16 20:16 | XMS REPORT ---
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 Allergies, Adverse Reactions, Alerts Allergy Name Allergy Type Status Severity Reaction(s) Onset Date Inactive Date Treating Clinician Comments Penicillins DA Active U 2018-09-06 00:00:00 Penicillins DA Active U 2010-02-04 00:00:00 Medications This patient has no known medications. Encounters Start Date/Time End Date/Time Encounter Type Admission Type Attending Clinicians Care Facility Care Department Encounter ID 2018-07-12 09:56:00 2018-07-12 09:56:00 Emergency [id number]
--- NOTE | 2019-01-16 20:45 | NUR ---
PT HAD A MODERATE SIZED BM, NOTED TO BE DARK/TARRY AND FOUL SMELLING, COLLECTED SPECIMEN FOR OCCULT STOOL AND NOTIFIED DR. VALDES AT THIS TIME.
[2019-01-16 21:12] LABS: BASOPHILS # (AUTO) 0.1 (0.0-0.1); BASOPHILS % 0.8 % (0.0-1.0); EOSINOPHILS # (AUTO) 0.1 (0.0-0.4); EOSINOPHILS % 0.9 % (0.0-6.0); HEMATOCRIT 29.4 % (38.2-49.6); HEMOGLOBIN 9.8 g/dL (14.0-18.0); LYMPHOCYTES # (AUTO) 2.2 (1.0-3.2); LYMPHOCYTES % 29.5 % (18.0-39.1); MEAN CORPUSCULAR HEMOGLOBIN 30.2 pg (28-32); MEAN CORPUSCULAR HGB CONC 33.3 g/dL (31-35); MEAN CORPUSCULAR VOLUME 90.7 fL (81-99); MONOCYTES # (AUTO) 0.5 (0.2-0.8); MONOCYTES % 7.2 % (4.4-11.3); NEUTROPHILS # (AUTO) 4.6 (2.1-6.9); NEUTROPHILS % 60.9 % (38.7-80.0); PLATELET COUNT 257 x10e3/uL (140-360); RED BLOOD COUNT 3.24 x10e6/uL (4.3-5.7); RED CELL DISTRIBUTION WIDTH 13.3 % (11.7-14.4)
[2019-01-16 21:27] LABS: ALANINE AMINOTRANSFERASE 19 IU/L (0-55); ALBUMIN 3.6 g/dL (3.5-5.0); ALBUMIN/GLOBULIN RATIO 1.6 (0.8-2.0); ALKALINE PHOSPHATASE 58 IU/L (40-150); BLOOD UREA NITROGEN 33 mg/dL (7-26); BUN/CREATININE RATIO 38 (6-25); CALCIUM 8.2 mg/dL (8.4-10.2); CARBON DIOXIDE 23 mmol/L (22-29); CHLORIDE 109 mmol/L (98-107); CREATININE, SERUM 0.87 mg/dL (0.72-1.25); EST GLOMERULAR FILTRATION RATE > 60 ML/MIN (60-); GLUCOSE 106 mg/dL (74-118); SODIUM 140 mmol/L (136-145)
--- OUTSIDE RECORDS SUMMARY | 2019-01-16 22:22 | XMS REPORT | Continuity of Care Document ---
Author Author [facility] Organization [facility] Address Unknown Phone Unavailable Care Team Providers Care Business Unit Controller Name Role Phone [employer] Information [employer] Unavailable Unavailable Problems Problem Status Onset Date Classification Date Reported Comments Source HEAD LAC Active 07/12/2018 [facility] Laceration without foreign body of scalp, initial encounter 07/12/2018 07/14/2018 [facility] Unspecified injury of head, initial encounter 07/12/2018 07/14/2018 [facility] Low back pain 07/12/2018 07/14/2018 [facility] Melena 11/11/2016 11/14/2016 [facility] GI BLEED Active 11/10/2016 [facility] F/U FROM HOSPITAL, YEARLY CHECK UP Active 05/04/2012 [facility] BLOOD IN STOOL Active 04/15/2012 [facility] Gastrointestinal hemorrhage (disorder) Resolved Problem 07/14/2018 [facility] GI bleeding Active Problem 04/19/2012 [facility] GASTROINTEST HEMORR NOS Active [facility] Medications Medication Details Route Status Patient Instructions Ordering Provider Order Date Source Acetaminophen 300 MG / Codeine Phosphate 30 MG Oral Tablet [Tylenol with Codeine #3] 1 tab, PO, Q6H, PRN Pain Score 4-6, X 5 day, # 30 tab, 0 Refill(s) Active 07/12/2018 [facility] Acetaminophen 325 MG / Hydrocodone Bitartrate 10 MG Oral Tablet [[place] 10/325] 1 tab, Route: PO, Drug Form: TAB, Dosing Weight 88.636, kg, ONCE, STAT, Start date: 07/12/18 10:14:00 COOLING PAN TENDER, Stop date: 07/12/18 10:14:00 CSTNotes: Do not exceed 4gm/day of acetaminophen. (Same as: [place] 325/10) Inactive 07/12/2018 [facility] pantoprazole 40 MG Enteric Coated Tablet [Protonix] 40 mg=1 tab, PO, Daily, # 30 tab, 0 Refill(s) Active 11/11/2016 [facility] Protonix 40 mg, Route: IVP, ONCE, Dosing Weight 88.636, kg, Priority: STAT, Start date: 11/11/16 0:35:00 CDT, Stop date: 11/11/16 0:35:00 CDT Inactive 11/11/2016 [facility] Tears Naturale 1 drp, Route: Each Affected Eye, TID, Drug form: SOLN, Start date: 04/17/12 13:00:00, Duration: 30 day, Stop date: 05/17/12 9:00:00 Each Affected Eye No Longer Active Rivera 04/17/2012 [facility] T[place]um[place]h 5/325 oral tablet 1 tab, Route: PO, Drug Form: TAB, Dosing Weight 82.273, kg, Q4H, PRN Pain, Start date: 04/17/12 9:32:00, Duration: 30 day, Stop date: 05/17/12 9:31:00 PO No Longer Active Rivera 04/17/2012 [facility] pantoprazole 80 mg + Sodium Chloride 0.9% IV 100 mL 100 mL, Rate: 10 ml/hr, Infuse over: 10 hr, Route: IV, kg, Total Volume: 100, Start date: 04/16/12 23:46:00, Duration: 30 day, Stop date: 05/16/12 23:45:00 IV No Longer Active Roel 04/17/2012 [facility] NS (Bolus) IV 1,000 mL 1,000 mL, Rate: 1,000 ml/hr, Infuse over: 1 hr, Route: IV, kg, Total Volume: 1,000, Start date: 04/16/12 22:34:00, Duration: 1 doses or times, Stop date: 04/16/12 23:33:00 IV No Longer Active Matthew 04/17/2012 [facility] Protonix 40 mg, Route: IVP, Drug form: INJ, ONCE, Dosing Weight 82.273, kg, Priority: STAT, Start date: 04/16/12 20:52:00, Stop date: 04/16/12 20:52:00 IVP No Longer Active Matthew 04/17/2012 [facility] NS (Bolus) IV 1,000 mL 1,000 mL, Rate: 1,000 ml/hr, Infuse over: 1 hr, Route: IV, kg, Total Volume: 1,000, Start date: 04/16/12 20:29:00, Duration: 30 day, Stop date: 05/16/12 20:28:00 IV No Longer Active Matthew 04/17/2012 [facility] Allergies, Adverse Reactions, Alerts Substance Category Reaction Severity Reaction type Status Date Reported Comments Source ibuprofen Assertion GI bleeding in 2009 Propensity to adverse reactions to drug Active [facility] penicillin Assertion Drug allergy Active [facility] Immunizations Immunization Date Given Site Status Last Updated Comments Source diphtheria/pertussis, acel/tetanus adult 07/12/2018 Right deltoid completed [place] [facility] Results Order Name Results Value Reference Range Date Interpretation Comments Source BLOOD BANK RESULTS ABO/Rh O POS 11/11/2016 [facility] CHEM PANEL A/G Ratio 1.1 0.7 - 1.6 11/11/2016 [facility] CHEM PANEL Globulin 3.5 2.7 - 4.2 11/11/2016 [facility] CHEM PANEL B/C Ratio 15 6 - 25 11/11/2016 [facility] CHEM PANEL AGAP 9.1 10.0 - 20.0 11/11/2016 [facility] CHEM PANEL Potassium Lvl 4.1 3.5 - 5.1 11/11/2016 [facility] CHEM PANEL CO2 26 24 - 32 11/11/2016 [facility] CHEM PANEL Chloride Lvl 107 95 - 109 11/11/2016 [facility] PANEL eGFR 79 11/11/2016 Result Comment: The [...] should be multiplied by the estimated BMI. [facility] CHEM PANEL BUN 16 7 - [...] Lipase Lvl 222 73 - 393 11/11/2016 [facility] HEMATOLOGY Basophils # 0.1 0.0 - 0.2 11/11/2016 [facility] HEMATOLOGY Eosinophils # 0.1 0.0 - 0.5 11/11/2016 [facility] HEMATOLOGY Segs-Bands # 3.6 1.5 - 8.1 11/11/2016 [facility] HEMATOLOGY Lymphocytes # 1.8 1.0 - 5.5 11/11/2016 [facility] HEMATOLOGY Monocytes # 0.6 0.0 - 0.8 11/11/2016 [facility] HEMATOLOGY Eosinophils 1.6 0.0 - 4.0 11/11/2016 [facility] HEMATOLOGY Basophils 0.9 0.0 - 1.0 11/11/2016 [facility] HEMATOLOGY Monocytes 9.9 2.0 - 12.0 11/11/2016 [facility] HEMATOLOGY Segs 58.1 45.0 - 75.0 11/11/2016 [facility] HEMATOLOGY Lymphocytes 29.5 20.0 - 40.0 11/11/2016 [facility] HEMATOLOGY INR 1.03 0.85 - 1.17 11/11/2016 [facility] HEMATOLOGY PT 13.7 12.0 - 14.7 11/11/2016 [facility] HEMATOLOGY PTT 30.3 22.9 - 35.8 11/11/2016 [facility] HEMATOLOGY WBC 6.2 3.7 - 10.4 11/11/2016 [facility] HEMATOLOGY MCV 89.1 80.0 - 94.0 11/11/2016 [facility] HEMATOLOGY Hgb 14.9 14.0 - 18.0 11/11/2016 [facility] HEMATOLOGY Hct 43.2 42.0 - 54.0 11/11/2016 [facility] HEMATOLOGY RBC 4.85 4.70 - 6.10 11/11/2016 [facility] HEMATOLOGY MPV 8.1 7.4 - 10.4 11/11/2016 [facility] MCH 30.7 27.0 - 31.0 11/11/[address] [facility] MCHC 34.5 32.0 - 36.0 11/11/2016 [facility] HEMATOLOGY RDW 13.5 11.5 - 14.5 11/11/2016 [facility] HEMATOLOGY Platelet 232 133 - 450 11/11/2016 [facility] URINE AND STOOL Occult Bld Stl Positive *ABN* (11/10/16 10:57 PM) Negative 11/11/2016 [facility] HEMATOLOGY Hct 23.8 42.0 - 54.0 04/17/2012 LOW [facility] HEMATOLOGY Hgb 8.5 14.0 - 18.0 04/17/2012 [facility] HEMATOLOGY Hgb 8.9 14.0 - 18.0 04/17/2012 [facility] HEMATOLOGY Hct 25.4 42.0 - 54.0 04/17/2012 [facility] HEMATOLOGY Hgb 8.2 14.0 - 18.0 04/17/2012 [facility] HEMATOLOGY Hct 23.3 42.0 - 54.0 04/17/2012 [facility] HEMATOLOGY PTT 27.4 22.9 - 35.8 04/17/2012 Normal <sup>6</sup>Interpretive Data: Heparin Therapeutic Range: 57 - 92 Seconds [facility] HEMATOLOGY INR 1.12 0.85 - 1.17 04/17/2012 Normal <sup>4</sup>Interpretive Data: RECOMMENDED RANGES FOR PROTIME INR:
2.0-3.0 for most medical and surgical thromboembolic states.
2.5-3.5 for artificial heart valves and recurrent embolism.

INR SHOULD BE USED ONLY FOR PATIENTS ON STABLE ANTICOAGULANT THERAPY. [facility] HEMATOLOGY PT 14.6 12.0 - 14.7 04/17/2012 Normal [facility] CHEMISTRY Alk Phos 78 39 - 136 04/17/2012 Normal [facility] CHEMISTRY ALT 27 0 - 65 04/17/2012 Normal [facility] CHEMISTRY Bili Total 0.2 0.2 - 1.3 04/17/2012 Normal [facility] CHEMISTRY AST 17 0 - 37 04/17/2012 Normal [facility] CHEMISTRY Total Protein 6.6 6.4 - 8.4 04/17/2012 Normal [facility] CHEMISTRY Albumin Lvl 3.8 3.5 - 5.0 04/17/2012 Normal [facility] CHEMISTRY eGFR 104 04/17/2012 NA <sup>2</sup>Result Comment: [...] should be multiplied by the estimated BMI. [facility] CHEMISTRY Calcium Lvl 8.0 8.5 - 10.5 04/17/2012 LOW [facility] CHEMISTRY CO2 24 24 - 32 04/17/2012 Normal [facility] CHEMISTRY Chloride Lvl 108 95 - 109 04/17/2012 Normal [facility] CHEMISTRY Potassium Lvl 3.9 3.5 - 5.1 04/17/2012 Normal [facility] CHEMISTRY BUN 24 7 - 22 04/17/2012 HI [facility] CHEMISTRY Sodium Lvl 144 135 - 145 04/17/2012 Normal <sup>1</sup>Result Comment: Slightly lipemic sample. [facility] CHEMISTRY Creatinine Lvl 0.9 0.5 - 1.4 04/17/2012 Normal [facility] CHEMISTRY Glucose Lvl 113 70 - 99 04/17/2012 HI <sup>3</sup>Interpretive Data: Adult reference range values reflect the clinical guidelines
of the [place] [employer]. [facility] CHEMISTRY A/G Ratio 1.4 0.7 - 1.6 04/17/2012 Normal [facility] CHEMISTRY Globulin 2.8 2.0 - 4.0 04/17/2012 Normal [facility] CHEMISTRY AGAP 15.9 10.0 - 20.0 04/17/2012 Normal [facility] CHEMISTRY B/C Ratio 27 6 - 25 04/17/2012 HI [facility] HEMATOLOGY Large Plt Slight *ABN* (04/16/2012 21:15:00) None Seen 04/17/2012 ABN [facility] HEMATOLOGY Neut Vac Slight *ABN* (04/16/2012 21:15:00) None Seen 04/17/2012 ABN [facility] HEMATOLOGY Segs 62.9 45.0 - 75.0 04/17/2012 Normal [facility] HEMATOLOGY Eosinophils 2.2 0.0 - 4.0 04/17/2012 Normal [facility] HEMATOLOGY Segs-Bands # 4.8 1.5 - 8.1 04/17/2012 Normal [facility] HEMATOLOGY Basophils 0.8 0.0 - 1.0 04/17/2012 Normal [facility] HEMATOLOGY Monocytes 10.1 2.0 - 12.0 04/17/2012 Normal [facility] HEMATOLOGY Lymphocytes 24.0 20.0 - 40.0 04/17/2012 Normal [facility] HEMATOLOGY Basophils # 0.1 0.0 - 0.2 04/17/2012 Normal [facility] HEMATOLOGY Hypochrom Slight (04/16/2012 21:15:00) None Seen 04/17/2012 Normal [facility] HEMATOLOGY Polychrom Slight (04/16/2012 21:15:00) None Seen 04/17/2012 Normal [facility] HEMATOLOGY Target Cell Occasional 04/17/2012 NA [facility] HEMATOLOGY Monocytes # 0.8 0.0 - 0.8 04/17/2012 Normal [facility] HEMATOLOGY Lymphocytes # 1.9 1.0 - 5.5 04/17/2012 Normal [facility] HEMATOLOGY Eosinophils # 0.2 0.0 - 0.5 04/17/2012 Normal [facility] HEMATOLOGY INR 0.90 0.85 - 1.17 04/17/2012 Normal <sup>5</sup>Interpretive Data: RECOMMENDED RANGES FOR PROTIME INR:
2.0-3.0 for most medical and surgical thromboembolic states.
2.5-3.5 for artificial heart valves and recurrent embolism.

INR SHOULD BE USED ONLY FOR PATIENTS ON STABLE ANTICOAGULANT THERAPY. [facility] HEMATOLOGY PTT 27.7 22.9 - 35.8 04/17/2012 Normal <sup>7</sup>Interpretive Data: Heparin Therapeutic Range: 57 - 92 Seconds [facility] HEMATOLOGY PT 12.4 12.0 - 14.7 04/17/2012 Normal [facility] HEMATOLOGY MCV 89.3 80.0 - 94.0 04/17/2012 Normal [facility] HEMATOLOGY RBC 3.36 4.70 - 6.10 04/17/2012 LOW [facility] HEMATOLOGY MCH 31.6 27.0 - 31.0 04/17/2012 HI [facility] HEMATOLOGY RDW 12.3 11.5 - 14.5 04/17/2012 Normal [facility] HEMATOLOGY MCHC 35.4 32.0 - 36.0 04/17/2012 Normal [facility] HEMATOLOGY WBC 7.8 3.7 - 10.4 04/17/2012 Normal [facility] HEMATOLOGY Platelet 237 133 - 450 04/17/2012 Normal [facility] HEMATOLOGY MPV 8.7 7.4 - 10.4 04/17/2012 Normal [facility] URINALYSIS UA Nitrite Negative (04/16/2012 20:55:00) Negative 04/17/2012 Normal [facility] URINALYSIS UA Leuk Est Negative (04/16/2012 20:55:00) Negative 04/17/2012 Normal [facility] URINALYSIS UA Sq Epi Rare /LPF (04/16/2012 20:55:00) Few 04/17/2012 Normal [facility] URINALYSIS Micro? Performed (04/16/2012 20:55:00) 04/17/2012 Normal [facility] URINALYSIS UA Urobilinogen 0.2 0.1 - 1.0 04/17/2012 Normal [facility] URINALYSIS UA Glucose Negative (04/16/2012 20:55:00) Negative 04/17/2012 Normal [facility] URINALYSIS UA Ketones Negative *NA* (04/16/2012 20:55:00) Negative 04/17/2012 [facility] URINALYSIS UA Spec Grav 1.033 <=1.030 04/17/2012 NA [facility] URINALYSIS UA pH 5.5 5.0 - 8.0 04/17/2012 Normal [facility] URINALYSIS UA Bili Negative *NA* (04/16/2012 20:55:00) Negative 04/17/2012 [facility] URINALYSIS UA Blood Negative (04/16/2012 20:55:00) Negative 04/17/2012 Normal [facility] URINALYSIS UA Protein Negative (04/16/2012 20:55:00) Negative 04/17/2012 Normal [facility] URINALYSIS UA Turbidity Clear (04/16/2012 20:55:00) Clear 04/17/2012 Normal [facility] URINALYSIS UA Color Yellow *NA* (04/16/2012 20:55:00) Yellow 04/17/2012 [facility] IMMUNOLOGY CDC-HIV 1/2 Ab Negative *NA* (04/16/2012 17:22:00) Negative 04/16/2012 [facility] Pathology Reports No Data Provided for This [...] not remarkable. IMPRESSION: No acute abnormality. SL: [id number] 07/12/2018 [facility] Sacrum/coccyx series DX Sacrum and coccyx 3 views: HISTORY: Fall. FINDINGS: Normal alignment of SI joints. Body of sacrum and coccyx appear intact without fracture or subluxation. SL: [id number] 07/12/2018 [facility] Pelvis AP DX Study: Pelvis, single view Clinical Indication: Pelvic pain post fall Comparison: None FINDINGS: Single frontal view of the pelvis shows no acute displaced bony fracture or joint dislocation. Soft tissues are unremarkable. IMPRESSION: No acute bony abnormality of the pelvis. SL: [id number] 07/12/2018 [facility] Brain wo contrast CT Patient Name: ROMEO PICKERING : 1965; Age: 52 years Male MR: [id number] Study: Brain wo contrast CT 07/12/2018 10:13 AM COOLING PAN TENDER Clinical Indication: Head trauma - fall. COMPARISON: [...] shift or mass effect. SL: [id number] 07/12/2018 [facility] Spine cervical wo contrast CT Study: [...] bony abnormality of the cervical spine. SL: [id number] 07/12/2018 [facility] Chest 1view DX EXAM: Chest 1view DX DATE: 07/12/2018 10:13 CO[employer]ING PAN [employer]ER INDICATION: Trauma - fall COMPARISON: 02/08/2010. IMPRESSION: Stable cardiac silhouette and mediastinum. No focal consolidation, significant pleural effusion or pneumothorax. SL: [id number] 07/12/2018 [facility] Consultation Notes No Data Provided for This Section Discharge Summaries No Data Provided for This Section History and Physicals No Data Provided for This Section Vital Signs Vital Sign Value Date Comments Source Systolic (mm Hg) 116 07/12/2018 [facility] Diastolic (mm Hg) 79 07/12/2018 [facility] Respitory Rate 16 07/12/2018 [facility] Heart Rate 80 07/12/2018 [facility] Temperature Oral (F) 98 F 07/12/2018 [facility] Height 167.64 cm 07/12/2018 [facility] Weight 88.636 07/12/2018 [facility] BMI Calculated 31.54 07/12/2018 [facility] Respitory Rate 18 07/12/2018 [facility] Heart Rate 76 07/12/2018 [facility] Systolic (mm Hg) 129 07/12/2018 [facility] Diastolic (mm Hg) 85 07/12/2018 [facility] Temperature Oral (F) 98.0 F 07/12/2018 [facility] Respitory Rate 12 11/11/2016 [facility] Temperature Oral (F) 98 F 11/11/2016 [facility] Systolic (mm Hg) 122 11/11/2016 [facility] Diastolic (mm Hg) 91 11/11/2016 [facility] Systolic (mm Hg) 126 11/11/2016 [facility] Diastolic (mm Hg) 68 11/11/2016 [facility] Respitory Rate 10 11/11/2016 [facility] BMI Calculated 31.54 11/11/2016 [facility] Weight 88.636 11/11/2016 [facility] Height 167.64 cm 11/11/2016 [facility] Respitory Rate 18 11/11/2016 [facility] Temperature Oral (F) 98.4 F 11/11/2016 [facility] Heart Rate 62 11/11/2016 [facility] Systolic (mm Hg) 130 11/11/2016 [facility] Diastolic (mm Hg) 81 11/11/2016 [facility] Systolic (mm Hg) 105 04/17/2012 [facility] Respitory Rate 18 04/17/2012 [facility] Heart Rate 85 04/17/2012 [facility] Temperature Oral (F) 98.2 F 04/17/2012 [facility] Diastolic (mm Hg) 63 04/17/2012 [facility] Diastolic (mm Hg) 66 04/17/2012 [facility] Temperature Oral (F) 98.1 F 04/17/2012 [facility] Heart Rate 88 04/17/2012 [facility] Respitory Rate 20 04/17/2012 [facility] Systolic (mm Hg) 105 04/17/2012 [facility] Heart Rate 74 04/17/2012 [facility] Respitory Rate 18 04/17/2012 [facility] Systolic (mm Hg) 102 04/17/2012 [facility] Diastolic (mm Hg) 65 04/17/2012 [facility] Weight 82.273 04/16/2012 [facility] Height 167.64 cm 04/16/2012 [facility] Encounters Location Location Details Encounter Type Encounter Number Reason For Visit Attending Provider ADM Date DC Date Status Source [facility] OU [id number] SHELBY BURRIS 04/16/2012 04/17/[address] [facility] Emergency [id number] Reejan Matthew 11/11/2016 11/11/2016 [facility] Emergency [id number] Cat Rachel 07/12/2018 07/12/2018 [facility] Outpatient [id number] F/U FROM HOSPITAL, YEARLY CHECK UP ELSI Pulido [facility] Procedures No Data Provided for This Section [...] Cessation Counseling No entered on: 07/12/18 07/12/2018 [facility] Family History No Data Provided for This Section Advance Directives No Data Provided for This Section Functional Status No Data Provided for This Section
--- NOTE | 2019-01-16 22:50 | NUR ---
Pt transferred to room 298 via WC. Pt alert and oriented to name, place, time, and diagnosis: GI bleed. Skin warm and dry, no breakdowns noted. Denies pain or discomfort at this time. Lungs CTA. Pt stated >5 loose black stools today. Denies dysuria. No acute distress noted. Oriented to room. Med rec completed. Call gerber within reach. Bed low and locked. Will continue to monitor.
[2019-01-16 22:58] VITALS: BP 104/71
[2019-01-16 22:59] VITALS: BP 104/71
[2019-01-16 23:02] VITALS: BP 109/71
[2019-01-16] MEDS ORDERED: OMEPRAZOLE40 MG (23:16)
[2019-01-16] MEDS ORDERED: PANTOPRAZOLE 40 MG 10ML VIAL IV STA (23:50)
[2019-01-17] VITALS (13 sets, daily range): BP systolic 100–119; BP diastolic 63–80
[2019-01-17 02:32] LABS: BASOPHILS # (AUTO) 0.1 (0.0-0.1); BASOPHILS % 0.8 % (0.0-1.0); EOSINOPHILS # (AUTO) 0.1 (0.0-0.4); EOSINOPHILS % 1.1 % (0.0-6.0); HEMATOCRIT 24.5 % (38.2-49.6); HEMOGLOBIN 8.5 g/dL (14.0-18.0); LYMPHOCYTES % 30.7 % (18.0-39.1); MEAN CORPUSCULAR HEMOGLOBIN 31.1 pg (28-32); MEAN CORPUSCULAR HGB CONC 34.7 g/dL (31-35); MEAN CORPUSCULAR VOLUME 89.7 fL (81-99); MONOCYTES # (AUTO) 0.4 (0.2-0.8); MONOCYTES % 6.2 % (4.4-11.3); NEUTROPHILS # (AUTO) 3.9 (2.1-6.9); NEUTROPHILS % 60.4 % (38.7-80.0); PLATELET COUNT 207 x10e3/uL (140-360); RED BLOOD COUNT 2.73 x10e6/uL (4.3-5.7); RED CELL DISTRIBUTION WIDTH 13.3 % (11.7-14.4)
[2019-01-17 02:53] LABS: ANION GAP 9.6 mmol/L (8-16); BLOOD UREA NITROGEN 31 mg/dL (7-26); BUN/CREATININE RATIO 40 (6-25); CALCIUM 7.8 mg/dL (8.4-10.2); CARBON DIOXIDE 22 mmol/L (22-29); CHLORIDE 110 mmol/L (98-107); CREATININE, SERUM 0.77 mg/dL (0.72-1.25); EST GLOMERULAR FILTRATION RATE > 60 ML/MIN (60-); GLUCOSE 118 mg/dL (74-118); MAGNESIUM 2.6 MG/DL (1.3-2.1); PHOSPHORUS 2.7 MG/DL (2.3-4.7); POTASSIUM 3.6 mmol/L (3.5-5.1); SODIUM 138 mmol/L (136-145)
[2019-01-17 03:05] LABS: FERRITIN 22.99 ng/mL (21.81-274.66)
--- NOTE | 2019-01-17 06:49 | NUR ---
BS rounds completed with morning nurse. Pt c/o tiredness. Encourage Pt to get slowly to prevent dizziness or syncope. Pt is at an increased risk for fall. Pt educated to use the call light if they need to get up and needs assistance with any mobilization. Informed Pt being lethargy can be a side effect of GI bleeding, losing blood.
--- NOTE | 2019-01-17 07:30 | NUR ---
PT UP AMBULATING IN ROOM DENIES PAIN.
[2019-01-17] MEDS: PANTOPRAZOLE 40 MG 10ML VIAL IV SCH ×2 (09:00→22:36)
--- NOTE | 2019-01-17 12:15 | NUR ---
PT TRANSPORTED TO [place] VIA W/C
--- NOTE | 2019-01-17 14:00 | NUR ---
PT RETURNED TO ROOM VIA W/C.SPOKE WITH DR AYALA .OK FOR FULL LIQUID DIET
--- NOTE | 2019-01-17 14:21 | NUR ---
FULL LIQUID DIET GIVEN ,PT TOLERATING WELL
--- NOTE | 2019-01-17 14:45 | NUR ---
spoke with dr liu re;bleeding scan gave radiologist dr zarate number
--- NOTE | 2019-01-17 14:55 | Diagnostic Imaging Report ---
ADDENDUM #1 Dr. Reed from Surgery wanted clarification of the original report. Two salient findings are present. First, there is a vascular blush in the left mid abdomen that may be an enlarged left kidney or hypervascular mass. Second, in proximity to the inferior aspect of the hypervascular blush, is the site of origin of a small bowel bleed. The blood in the small bowel then moves along the vascular blush area before crossing the mid line and looping in small bowel in the right abdomen. The origin of the small bowel bleed is in the left lower quadrant just to the left of midline at about the level of the bifurcation. The extent of propagation of the bleed moving from the LLQ to the right abdomen indicates that the bleed is not in close proximity to the terminal ileum. Signed by: Dr. Nguyen Lancaster M.D. on 01/17/2019 4:55 PM ORIGINAL REPORT Tagged-RBC GI Bleed Study Clinical information: 53-year-old male with melena and positive guaiac test. Recent colonoscopy removed 3 polyps but no site of bleeding detected. Discussion: The patient's own red blood cells were labeled with 25 mCi of technetium-99m pertechnetate using the in vitro method (UltraTaWSO2). Dynamic images of the abdomen were obtained through 60 minutes. On the initial images, distribution of tracer activity appears physiologic throughout the abdomen except for what appears to be an enlarge left kidney or hypervascular mass. At about 20 minutes, tracer is seen in small bowel starting in the left lower quadrant and propagating along the hypervascular appearing mass and the through normal small bowel in the mid and right abdomen. Impression: No scan evidence of active gastrointestinal bleeding that begins in small bowel and propagates antegrade through small intestine, initially along a hypervascular mass in the left mid abdomen and then to the mid and right abdomen. Results called to Dr. John Robels at 2:40 pm on 01/17/2019. Signed by: Dr. Nguyen Lancaster M.D. on 01/17/2019 2:52 PM
--- NOTE | 2019-01-17 15:00 | NUR ---
SPKE WITH DR AYALA REQUESTING TO SPEAK WITH DR CLEMENS FOR SURGERY CONSULT
--- NOTE | 2019-01-17 15:15 | NUR ---
SPOKE WITH DR MERIDA ORDER CONSULT FOR SURGEON DR Joel REAGAN
--- NOTE | 2019-01-17 15:30 | NUR ---
SPOKE WITH DR ULLOA NO NEW ORDERS.
--- NOTE | 2019-01-17 15:33 | History and Physical ---
Mr. 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 CHIEF COMPLAINT: He presents to the emergency room with a complaint of black and tarry stools. HISTORY OF PRESENT ILLNESS: The patient reports this began the morning of the . He had no abdominal discomfort associated with it. PAST MEDICAL HISTORY: Significant for previous episodes of gastrointestinal bleeding, hospitalized here in 2016. Previous evaluations have not been revealing as to the source. He does not take any medications at all and certainly does not take any aspirin or nonsteroidal anti-inflammatory agents. He denies any hypertension or diabetes. He has had no previous surgical procedures. PERSONAL AND SOCIAL HISTORY: He does not smoke or drink. PHYSICAL EXAMINATION: GENERAL: At this time shows a pleasant, alert man, who is comfortable. VITAL SIGNS: Blood pressure 110/60, pulse 90 and regular. HEAD, EYES, EARS, NOSE, AND THROAT: Unremarkable. NECK: No jugular venous distention. THORAX: Heart sounds S1 and S2 are equal. No murmurs. LUNGS: Clear. ABDOMEN: Protuberant. Normal bowel sounds. Nontender. No masses. No organomegaly. EXTREMITIES: No cyanosis, clubbing, or edema. PERTINENT LABORATORY STUDIES: Show BUN 31 and creatinine 0.7. Hemoglobin 8.5, white count 6.4, and platelets 207,000. ASSESSMENT: 1. Gastrointestinal bleeding, source not clear. 2. Previous colonoscopy earlier this month with pathology reports not yet revealed. PLAN: Agree with current evaluation and we will monitor. He is going to have a nuclear bleeding scan later this morning. Further management based on clinical course. MD DURGA White/MAGDALENA /[id number] cc: MD John Palmer MD
--- NOTE | 2019-01-17 16:45 | NUR ---
DR ULLOA HERE SPOKE WITH PT REGARDING ,MORE LAB AND CT SCAN. PT TO BE TRANSFERRRED TO ICU [id number]
[2019-01-17] MEDS ORDERED: SODIUM CHLORIDE 0.9% 250ML 250 ML IV ONE ×2 (17:15→18:30)
[2019-01-17 17:36] LABS: BASOPHILS % 0.5 % (0.0-1.0); EOSINOPHILS # (AUTO) 0.1 (0.0-0.4); EOSINOPHILS % 0.6 % (0.0-6.0); HEMATOCRIT 21.6 % (38.2-49.6); HEMOGLOBIN 7.3 g/dL (14.0-18.0); LYMPHOCYTES % 24.6 % (18.0-39.1); MEAN CORPUSCULAR HEMOGLOBIN 30.8 pg (28-32); MEAN CORPUSCULAR HGB CONC 33.8 g/dL (31-35); MEAN CORPUSCULAR VOLUME 91.1 fL (81-99); MONOCYTES # (AUTO) 0.6 (0.2-0.8); MONOCYTES % 6.9 % (4.4-11.3); NEUTROPHILS # (AUTO) 5.3 (2.1-6.9); NEUTROPHILS % 66.5 % (38.7-80.0); PLATELET COUNT 219 x10e3/uL (140-360); RED BLOOD COUNT 2.37 x10e6/uL (4.3-5.7); RED CELL DISTRIBUTION WIDTH 13.7 % (11.7-14.4)
--- NOTE | 2019-01-17 18:02 | NUR ---
REPORT GIVEN TO ALEKSEY MCGINNIS IN ICU ,PT TRANSPORTED TO ICU RM 191,
[2019-01-17 18:18] LABS: INR 1.07; PROTHROMBIN TIME 14.4 seconds (11.9-14.5)
--- NOTE | 2019-01-17 18:19 | NUR ---
Patient to Room 191, VSS, alert, oriented via wheelchair. Call rec'd from Dr Joel Reed, orders rec'd to transfuse 2 PRBCs and then assess H&H. Bedside report given to RAHEL Jackson. Patient and family state understanding and have no questions.
--- NOTE | 2019-01-17 18:23 | Consultation ---
DATE OF CONSULTATION: 01/17/2019 REASON FOR CONSULTATION: GI bleed of unclear etiology. HISTORY OF PRESENT ILLNESS: The patient is a 53-year-old male, admitted yesterday through the emergency room complaining of hematochezia. He had noticed tarry stools, reason for which he came to the emergency room. The patient's history was that he underwent elsewhere by Dr. Walton, colonoscopy with polypectomy of three polyps two weeks ago. He does not know the results. The operative report is not available at the time of his examination by me. The patient's past history is significant for the fact that he has several episodes of lower GI bleed in the past and no source of bleeding has been found. History otherwise is unremarkable. He does not take any type of anticoagulation or aspirin. The patient is not a heavy drinker. Since admission, the patient had nuclear medicine scan, which was discussed by me with the radiologist, who interpreted report. The report reveals as per my phone conversation with her that there is a possible blush in the area of the kidney and there is a possible source of bleeding in the area of the jejunum, which is in close proximity to the left kidney. No active bleeding was seen. the right kidney was not visualized. This raises the possibility of a left renal mass, which could be possibly erosion into the small bowel. Currently, the patient is afebrile with stable vital signs. However, he recently just get up and felt lightheaded. The patient most recent set of vital signs reveals a 53-year-old male, who is in no acute distress. He is appears to be somewhat pale. The current vital signs pulse is 113, respiration 20, blood pressure 114/72, the oxygen saturation on room air is 96. The patient is awake and alert. Examination of the abdomen reveals a soft abdomen without any scars or palpable masses. It is nontender. There are no surgical scars. Examination of the rectum reveals no bright red blood. There is some trace of tarry stool. His admission labs have been reviewed as I am dictating the initial hemoglobin was 9,repeated 6:00 a.m. hemoglobin is 8 .Repeat Hgb is pending ASSESSMENT: Recurrent GI bleed of unclear etiology. The nuclear medicine scan findings have discussed with Dr Lancaster and I have asked her to clarify the findings .I have discussed the case with Doctor Escalona and Doctor M Robles The plan is to transfer the patient to ICU for closer monitoring. Last hematocrit was at 6:00 a.m., I am going to repeat it now and place him on an every 6 hours hemoglobin and hematocrit. I am ordering a stat CT scan of the abdomen and pelvis with IV contrast to evaluate the findings on the nuclear medicine scan. If he rebleeds again during the night, he will have to have an emergency arteriogram to evaluate for source of bleeding from the abdominal aorta into the gut.[facility] has been notified If he does not rebleed, then we are going to go ahead and proceed with an arteriogram to tomorrow morning to further evalaute him has recurrent GI bleed. The patient will be typed and cross-matched at all time for 4 units of blood and as I said before, he will be transferred to the ICU for closer monitoring. Will keep him NPO and start maintenace IV fluids. Thanks. MD MISAEL Teixeira/MAGDALENA /[id number] ROSALIND
--- NOTE | 2019-01-17 18:38 | Diagnostic Imaging Report ---
EXAMINATION: CT of the abdomen and pelvis with contrast. TECHNIQUE: Spiral CT images of the abdomen and pelvis were performed from the lung bases to the lesser trochanters after the intravenous administration of 100 cc of Isovue 370 and the oral administration of water. Coronal and sagittal reformatted images were obtained. COMPARISON: Nuclear medicine GI bleed study was reviewed. CLINICAL HISTORY:Suspected renal mass DISCUSSION: ABDOMEN/PELVIS: LOWER THORAX:Unremarkable. HEPATOBILIARY: Normal hepatic size and contour. No focal lesions. No intra or extrahepatic biliary ductal dilation. GALLBLADDER: No radio-opaque stones or sludge. No wall thickening. SPLEEN: No splenomegaly. PANCREAS: No focal masses or ductal dilatation. ADRENALS: No adrenal nodules. KIDNEYS/URETERS: No hydronephrosis or obstruction. No renal stones. No cystic or solid enhancing masses.. PELVIC ORGANS/BLADDER: Bladder is unremarkable. Dystrophic calcifications in the prostate. PERITONEUM/RETROPERITONEUM: No free air or fluid. LYMPH NODES: No intra-abdominal, retroperitoneal, pelvic or inguinal lymphadenopathy. VESSELS: The celiac trunk,superior and inferior mesenteric and bilateral renal arteries are patent The portal, superior mesenteric and splenic veins are patent. GI TRACT: No bowel dilation or evidence of obstruction. Appendix is well identified and normal in caliber. Well-circumscribed oval shaped hyperdense intraluminal density in the cecum may represent undigested pill material. No intraluminal bowel hyperdensity to suggest acute hemorrhage. BONES AND SOFT TISSUE: No aggressive lytic lesions. No soft tissue abnormalities. IMPRESSION: 1. No cystic or solid enhancing renal mass is identified. 2. No bowel intraluminal hyperdensity to suggest acute hemorrhage. Signed by: Dr. Rio Bolanos M.D. on 01/17/2019 6:35 PM
[2019-01-17] MEDS: LACTATED RINGER'S 1,000 ML IV SCH (18:46)
[2019-01-17] MEDS ORDERED: SODIUM CHLORIDE 0.9% 50ML 50 ML ONE (18:52)
[2019-01-17] MEDS ORDERED: IOPAMIDOL 370 MG/ML 200 ML INFUS..BTL INJ ONE (18:52)
[2019-01-17 20:41] LABS: BILIRUBIN,URINE NEGATIVE (NEGATIVE); CLARITY,URINE CLEAR (CLEAR); COLOR,URINE YELLOW (YELLOW); KETONES,URINE NEGATIVE (NEGATIVE); LEUKOCYTE ESTERASE ,URINE NEGATIVE (NEGATIVE); NITRITE,URINE NEGATIVE (NEGATIVE); PROTEIN,URINE DIPSTICK NEGATIVE (NEGATIVE); URINE UROBILINOGEN 0.2 mg/dL (0.2 - 1)
[2019-01-17 20:57] LABS: WBC,URINE (MAN) 0-5 /HPF (0-5)
[2019-01-18] VITALS (25 sets, daily range): BP systolic 96–131; BP diastolic 61–91
[2019-01-18] MEDS ORDERED: CYANOCOBALAMIN INJ 1,000 MCG/ML VIAL IM ONE
[2019-01-18] MEDS: LACTATED RINGER'S 1,000 ML IV SCH ×4 (01:45→20:57)
[2019-01-18 05:41] LABS: BASOPHILS # (AUTO) 0.1 (0.0-0.1); BASOPHILS % 0.7 % (0.0-1.0); EOSINOPHILS # (AUTO) 0.1 (0.0-0.4); EOSINOPHILS % 0.7 % (0.0-6.0); HEMATOCRIT 26.5 % (38.2-49.6); HEMOGLOBIN 9.1 g/dL (14.0-18.0); LYMPHOCYTES # (AUTO) 1.6 (1.0-3.2); MEAN CORPUSCULAR HEMOGLOBIN 30.8 pg (28-32); MEAN CORPUSCULAR HGB CONC 34.3 g/dL (31-35); MEAN CORPUSCULAR VOLUME 89.8 fL (81-99); MONOCYTES # (AUTO) 0.6 (0.2-0.8); MONOCYTES % 7.9 % (4.4-11.3); NEUTROPHILS # (AUTO) 4.8 (2.1-6.9); NEUTROPHILS % 67.3 % (38.7-80.0); PLATELET COUNT 183 x10e3/uL (140-360); RED BLOOD COUNT 2.95 x10e6/uL (4.3-5.7); RED CELL DISTRIBUTION WIDTH 13.8 % (11.7-14.4)
--- NOTE | 2019-01-18 05:42 | NUR ---
2u PRBC's given per order for Hgb of 7.3, no transfusion reaction noted, pt tolerated intake and VS remained stable. Per Dr. Krishna Robles, transfuse next 2u on hold if AM hgb <8. AM hgb reports 8.9. Pt no longer symptomatic at this time. VS stable & WNL at this time. Will continue to monitor.
[2019-01-18] MEDS: CYANOCOBALAMIN INJ 1,000 MCG/ML VIAL IM SCH ×2 (08:00→08:07)
[2019-01-18] MEDS: PANTOPRAZOLE 40 MG 10ML VIAL IV SCH ×2 (08:00→21:27)
[2019-01-18] MEDS ORDERED: SODIUM CHLORIDE 0.9% 250ML 250 ML IV ONE ×2 (10:45)
--- NOTE | 2019-01-18 18:01 | NUR ---
Dr. Joel Reed rounded this AM and ordered IR consult for abdominal arteriogram. Procedure canceled per Dr. Reed patient has a small bowel mass identified on previous imaging. MD ordered 1 unit PRBCs to be given today and 4 units PRBC's to be placed on hold. Patient to go to surgery tomorrow for exploratory laparotomy with bowel resection due to GI bleeding secondary to small bowel tumor. Dr. Reed informed Dr. Escalona of situation. Patient to be NPO at midnight but for now may have clear liquids in small amounts. Patient received 1 unit PRBC's without any s/s of transfusion reactions. Consent signed and placed in chart. Dr. Reed rounded again this evening and ordered stat BMP and would like to be notified of results. Labs ordered for tomorrow morning as well. Surgery scheduled for 0930 AM. Will continue to monitor.
[2019-01-18 19:12] LABS: ANION GAP 8.8 mmol/L (8-16); BLOOD UREA NITROGEN 18 mg/dL (7-26); BUN/CREATININE RATIO 26 (6-25); CARBON DIOXIDE 24 mmol/L (22-29); CHLORIDE 108 mmol/L (98-107); EST GLOMERULAR FILTRATION RATE > 60 ML/MIN (60-); GLUCOSE 106 mg/dL (74-118); POTASSIUM 3.8 mmol/L (3.5-5.1); SODIUM 137 mmol/L (136-145)
--- NOTE | 2019-01-18 21:33 | NUR ---
Notified Dr. Reed of BMP results. No new orders received.
[2019-01-19] VITALS (15 sets, daily range): BP systolic 106–130; BP diastolic 66–83
[2019-01-19 05:07] LABS: BASOPHILS % 0.5 % (0.0-1.0); EOSINOPHILS # (AUTO) 0.1 (0.0-0.4); EOSINOPHILS % 0.8 % (0.0-6.0); HEMATOCRIT 26.3 % (38.2-49.6); HEMOGLOBIN 8.8 g/dL (14.0-18.0); LYMPHOCYTES # (AUTO) 1.6 (1.0-3.2); MEAN CORPUSCULAR HEMOGLOBIN 30.7 pg (28-32); MEAN CORPUSCULAR HGB CONC 33.5 g/dL (31-35); MEAN CORPUSCULAR VOLUME 91.6 fL (81-99); MONOCYTES # (AUTO) 0.5 (0.2-0.8); NEUTROPHILS # (AUTO) 5.2 (2.1-6.9); PLATELET COUNT 174 x10e3/uL (140-360); RED BLOOD COUNT 2.87 x10e6/uL (4.3-5.7); RED CELL DISTRIBUTION WIDTH 14.4 % (11.7-14.4)
[2019-01-19 05:22] LABS: ANION GAP 7.6 mmol/L (8-16); BLOOD UREA NITROGEN 16 mg/dL (7-26); BUN/CREATININE RATIO 22 (6-25); CALCIUM 8.1 mg/dL (8.4-10.2); CARBON DIOXIDE 26 mmol/L (22-29); CHLORIDE 105 mmol/L (98-107); CREATININE, SERUM 0.72 mg/dL (0.72-1.25); EST GLOMERULAR FILTRATION RATE > 60 ML/MIN (60-); GLUCOSE 97 mg/dL (74-118); POTASSIUM 3.6 mmol/L (3.5-5.1); SODIUM 135 mmol/L (136-145)
[2019-01-19] MEDS ORDERED: BUPIVACAINE 0.25%/EPI 30ML SDV INJ ONE ×2 (09:20→09:48)
[2019-01-19] MEDS ORDERED: DIPHENHYDRAMINE HCL INJ 50 MG/ML VIAL IM PRN (10:30)
[2019-01-19] MEDS ORDERED: HYDROMORPHONE 0.2MG/ML-SOD CHL 30ML PCA SYRINGE IV PRN (10:30)
[2019-01-19] MEDS ORDERED: ACETAMINOPHEN 1000 MG/100 ML IV PRN (10:30)
[2019-01-19] MEDS ORDERED: NALOXONE HCL INJ 0.4 MG/ML AMP IV PRN (10:30)
[2019-01-19] MEDS ORDERED: METOCLOPRAMIDE HCL 10 MG/2ML VIAL IV PRN (10:30)
[2019-01-19] MEDS ORDERED: DIPHENHYDRAMINE HCL 25 MG CAP PO PRN (10:30)
[2019-01-19] MEDS ORDERED: FENTANYL CITRATE/PF 100MCG/2 ML INJ ONE ×2 (10:41→14:06)
[2019-01-19] MEDS ORDERED: HYDROMORPHONE 0.2MG/ML-SOD CHL 30ML PCA SYRINGE IV ONE (10:50)
[2019-01-19] MEDS: PANTOPRAZOLE 40 MG 10ML VIAL IV SCH ×2 (11:36→22:26)
[2019-01-19] MEDS: CYANOCOBALAMIN INJ 1,000 MCG/ML VIAL IM SCH (11:36)
--- NOTE | 2019-01-19 11:38 | Operative Report ---
DATE OF PROCEDURE: 01/19/2019 SURGEON: Randall Reed MD PREOPERATIVE DIAGNOSES: Gastrointestinal bleed, recurrent, secondary to small bowel lesion. 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 PROCEDURE PERFORMED: Exploratory laparotomy, small bowel resection with [id number] functional end-to-end anastomosis stapled. ANESTHESIA: General. ESTIMATED BLOOD LOSS: Minimal. DRAINS: None. COMPLICATIONS: None. INDICATION AND FINDINGS: The patient is a 53-year-old male, who had a longstanding history of recurrent GI bleed for which he had required multiple admissions. He had undergone extensive workup in the past without the source of the bleeding being diagnosed. At this time, the patient came in with the same problem through the emergency room and an initial nuclear medicine scan performed while he was in the emergency room and revealed the possible bleed coming from the small bowel. Nuclear scan study suggested the possibility of a renal mass. Because of this, a CT scan of the abdomen and pelvis with IV contrast was performed. This was ordered to evaluate the possibility of a renal mass. However, as a serendipitous finding, the source of the bleeding was found to be a tumor in the small bowel when the CT scan showed a mass and anterior blush in that area. INTRAOPERATIVE FINDINGS: The patient located 30 cm from the ligament of Treitz, had an exophytic tumor through the wall of the small bowel that was about 4 cm in diameter. It was irregular, firm, and hard. It appeared to have started to obstruct the small bowel. The small bowel resection was performed with 10 cm margins on each side and taken the entire mesentery as high as it could be taken with the specimen. At the apex of the mesentery, there appeared to be a lymph node. Final path report is pending, and these findings were discussed with the patient's family. DESCRIPTION OF PROCEDURE: With the patient lying on the operative table in the supine position after administration of general anesthesia, he was prepped and draped for exploratory laparotomy with small bowel resection. Upon entering the abdomen through an incision that extended about 6 cm superior and inferior to the umbilicus, performed the laparotomy with the findings noted above were seen. The tumor was exteriorized. We at this point ran the small bowel several times from the ligament of Treitz to the ileocecal bowel and in the reverse fashion did not find any other lesion. The liver was free of any lesion. We did not see any other abnormal pathology so far as a manual and visual exploration was concerned. At this point, we went ahead and then selected the points of transection for the small bowel, which was 10 cm proximally and 10 cm distally and then transected the ends of the bowel with the MASHA #75 stapler. We took down the mesentery of the small bowel with the EnSeal instrument. At the apex of the mesentery, there appeared to be if not this area, which was also the highest point was transected between clamps, removing this possible lymph node with the specimen. This was sent for frozen section. The abdomen was then irrigated after ascertained there was no bleeding. No bowel injury and then we performed a raaq-bg-kgeu end-to-end anastomosis by firing the MASHA #75 stapler to anastomose the side of the bowel in a imcl-qm-ysyv functional end-to-end fashion. Then, the rent in the corners of his bowel was closed using the TA #60 stapler. The staple line was reinforced with 3-0 silk. Stay sutures were placed distal to the staple line to prevent any tension on the staple line with 3-0 silk. The mesentery was then closed using a running 2-0 Vicryl. The operative field was then again irrigated. There was no evidence of bleeding or any bowel wall leak. We then checked the position of the NG tube and it was in good position. We brought the omentum over the anastomosis and then after the sponge and instrument counts were pronounced correct several times, we closed the wound using a running #0 Vicryl for the preperitoneum along the midline and the anterior midline was closed using a running 1-0 Vicryl. The subcutaneous tissues were closed using 2-0 chromic catgut and the skin was closed using jossie. The patient received a local field block both in the soft tissue and muscle fascia and the skin with 0.25% Marcaine with epinephrine, about 40 mL total. The patient tolerated the procedure well and taken to recovery room in stable condition. The family was informed of intraoperative findings. MD MISAEL Teixeira/MODL /[id number]
--- NOTE | 2019-01-19 12:15 | NUR ---
Patient left for OR at 0740 for exploratory laparotomy. Patient returned from PACU at 1115. Patient came with Dilaudid wrapper off pump, R nare NG tube and watson catheter. Patient wearing abdominal binder with foam tape dressing underneath, clean, dry and intact. Patient does not appear to be in any distress at this time. Dr. Reed gave orders to transfer to medical surgical floor. Cefoxitin orders clarified with MD because patient has a penicillin allergy, Dr. Reed stated that it is ok for patient to receive, pharmacy notified of situation.
[2019-01-19] MEDS: SODIUM CHLORIDE 0.9% 250ML IRRIG IR SCH ×4 (12:59→22:23)
[2019-01-19] MEDS: CEFOXITIN 1GM/ D5W 50ML 50 ML IV SCH ×2 (13:25→18:16)
[2019-01-19] MEDS: ACETAMINOPHEN 1000 MG/100 ML IV SCH ×2 (13:25→22:00)
[2019-01-19] MEDS ORDERED: SEVOFLURANE INHAL SOLN 250 ML PEN BTL ONE (13:59)
[2019-01-19] MEDS ORDERED: PROPOFOL IV EMULSION 10 MG/ML 20 ML VIAL ONE (13:59)
[2019-01-19] MEDS ORDERED: CEFOXITIN SOD 1 GM VIAL ONE (13:59)
[2019-01-19] MEDS ORDERED: LIDOCAINE HCL 2% LOCAL INJ 5 ML SDV VIAL INJ ONE (13:59)
[2019-01-19] MEDS ORDERED: ONDANSETRON HCL INJ 2MG/ML 2ML 2 MG/ML VIAL ONE (13:59)
[2019-01-19] MEDS ORDERED: ROCURONIUM BROMIDE 10 MG/ML 5ML VIAL ONE (13:59)
[2019-01-19] MEDS ORDERED: DEXAMETHASONE SOD PHOS INJ 4 MG/ML VIAL ONE (13:59)
[2019-01-19] MEDS ORDERED: ACETAMINOPHEN 1000 MG/100 ML IV ONE (13:59)
[2019-01-19] MEDS ORDERED: KETOROLAC TROMETHAMINE 30 MG/ML VIAL ONE (13:59)
[2019-01-19] MEDS ORDERED: MIDAZOLAM HCL 2 MG/2 ML VIAL ONE (14:06)
[2019-01-19 15:09] LABS: BASOPHILS % 0.2 % (0.0-1.0); EOSINOPHILS % 0.3 % (0.0-6.0); HEMATOCRIT 27.3 % (38.2-49.6); LYMPHOCYTES # (AUTO) 0.5 (1.0-3.2); LYMPHOCYTES % 3.4 % (18.0-39.1); MEAN CORPUSCULAR HEMOGLOBIN 30.4 pg (28-32); MEAN CORPUSCULAR VOLUME 92.2 fL (81-99); MONOCYTES # (AUTO) 0.6 (0.2-0.8); MONOCYTES % 3.8 % (4.4-11.3); NEUTROPHILS % 91.5 % (38.7-80.0); PLATELET COUNT 213 x10e3/uL (140-360); RED BLOOD COUNT 2.96 x10e6/uL (4.3-5.7); RED CELL DISTRIBUTION WIDTH 14.6 % (11.7-14.4)
--- NOTE | 2019-01-19 15:37 | NUR ---
RECEIVED PATIENT FROM ICU. PATIENT A/O X3, EVEN RESPIRATIONS ON 2LNC. LUNG SOUNDS CLEAR TO AUSCULTATION. ABDOMINAL BINDER WITH MICROFOAM TAPE DRESSING CLEAN, DRY, AND INTACT. BOWEL SOUNDS HYPOACTIVE X4. RIGHT AND LEFT 18 GAUGE IV. LR INFUSING TO RIGHT AC @ 80 CC/HR. MANAGER GENERATION DILAUDID IN PLACE. MAST DRAINING CLEAR YELLOW URINE. NGT TO RIGHT NARE SET TO LCS. SCD's BILATERALLY. PATIENT REPORTS PAIN 3/10. NO SIGNS OF DISTRESS. ORIENTED PATIENT TO ROOM. BED LOW, WHEELS LOCKED, SIDE RAILS X2, FAMILY AT BEDSIDE. CALL LIGHT IN REACH WILL CONTINUE TO MONITOR PATIENT.
[2019-01-19] MEDS: LACTATED RINGER'S 1,000 ML IV SCH (17:52)
[2019-01-20] VITALS (8 sets, daily range): BP systolic 114–137; BP diastolic 65–78
[2019-01-20] MEDS: LACTATED RINGER'S 1,000 ML IV SCH ×2 (00:57→12:55)
[2019-01-20] MEDS: SODIUM CHLORIDE 0.9% 250ML IRRIG IR SCH ×6 (02:30→22:43)
[2019-01-20] MEDS ORDERED: HYDROMORPHONE 0.2MG/ML-SOD CHL 30ML PCA SYRINGE IV ONE (02:35)
[2019-01-20] MEDS: ACETAMINOPHEN 1000 MG/100 ML IV SCH (05:39)
[2019-01-20 05:59] LABS: BASOPHILS % 0.2 % (0.0-1.0); EOSINOPHILS % 0.1 % (0.0-6.0); HEMATOCRIT 24.6 % (38.2-49.6); LYMPHOCYTES # (AUTO) 1.3 (1.0-3.2); LYMPHOCYTES % 10.6 % (18.0-39.1); MEAN CORPUSCULAR HEMOGLOBIN 30.5 pg (28-32); MEAN CORPUSCULAR HGB CONC 32.5 g/dL (31-35); MEAN CORPUSCULAR VOLUME 93.9 fL (81-99); MONOCYTES % 7.9 % (4.4-11.3); NEUTROPHILS # (AUTO) 9.8 (2.1-6.9); NEUTROPHILS % 80.6 % (38.7-80.0); PLATELET COUNT 217 x10e3/uL (140-360); RED BLOOD COUNT 2.62 x10e6/uL (4.3-5.7); RED CELL DISTRIBUTION WIDTH 15.2 % (11.7-14.4)
[2019-01-20 06:12] LABS: ANION GAP 10.9 mmol/L (8-16); BLOOD UREA NITROGEN 18 mg/dL (7-26); BUN/CREATININE RATIO 25 (6-25); CALCIUM 8.3 mg/dL (8.4-10.2); CARBON DIOXIDE 26 mmol/L (22-29); CHLORIDE 103 mmol/L (98-107); CREATININE, SERUM 0.72 mg/dL (0.72-1.25); EST GLOMERULAR FILTRATION RATE > 60 ML/MIN (60-); GLUCOSE 113 mg/dL (74-118); POTASSIUM 3.9 mmol/L (3.5-5.1); SODIUM 136 mmol/L (136-145)
--- NOTE | 2019-01-20 06:47 | NUR ---
shirley zaldivar per md koroma
[2019-01-20] MEDS: CYANOCOBALAMIN INJ 1,000 MCG/ML VIAL IM SCH (09:56)
[2019-01-20] MEDS: PANTOPRAZOLE 40 MG 10ML VIAL IV SCH ×2 (09:56→20:02)
[2019-01-20] MEDS: ONDANSETRON HCL INJ 2MG/ML 2ML 2 MG/ML VIAL IV PRN ×2 (11:43→20:02)
[2019-01-20] MEDS ORDERED: CHLORASEPTIC SPRAY 177 ML BTL MM PRN (16:45)
[2019-01-20] MEDS ORDERED: ACETAMINOPHEN 1000 MG/100 ML IV PRN (17:30)
--- NOTE | 2019-01-20 19:24 | NUR ---
BEDSIDE SHIFT REPORT PERFORMED, RECEIVED PT SITTING IN CHAIR, ASSISTED PT TO BED, AAOX3, RR EVEN AND NON-LABORED, ON ROOM AIR. NO S/SX OF DISTRESS NOTED. DRESSING TO ANTERIOR ABD, CDI, WITH BINDER. ALUMNI RELATIONS OFFICER PUMP FOR PAIN MANAGEMENT, ALUMNI RELATIONS OFFICER BUTTON WITHIN REACH. LEFT PT LAYING FOWLERS IN BED, BED IN LOW LOCKED POSITION, SIDE RAILS UPX2, CALL LIGHT AND PHONE WITHIN REACH.
--- NOTE | 2019-01-20 22:35 | NUR ---
ASSISTED PT TO STANDING POSITION FOR PT TO AMBULATE IN ROOM. PT STOOD AND COUGHED UP SPUTUM AND SAT BACK DOWN ON THE BED. PT REPORTS FEELING OF NAUSEA AND GOING TO VOMIT. NO EMESIS PRODUCED. ASSISTED PT TO LAW FOWLERS IN BED, RECONNECT NGT. LEFT PT LAYING FOWLERS IN BED, BED IN LOW LOCKED POSITION, SIDE RAILS UPX2, CALL LIGHT AND PHONE WITHIN REACH.
[2019-01-21] VITALS (8 sets, daily range): BP systolic 127–172; BP diastolic 65–95
[2019-01-21] MEDS: LACTATED RINGER'S 1,000 ML IV SCH ×3 (00:38→23:42)
[2019-01-21] MEDS: SODIUM CHLORIDE 0.9% 250ML IRRIG IR SCH ×4 (02:53→14:30)
[2019-01-21 06:22] LABS: BASOPHILS % 0.3 % (0.0-1.0); EOSINOPHILS % 0.1 % (0.0-6.0); HEMATOCRIT 25.7 % (38.2-49.6); LYMPHOCYTES # (AUTO) 0.7 (1.0-3.2); MEAN CORPUSCULAR HEMOGLOBIN 29.5 pg (28-32); MEAN CORPUSCULAR HGB CONC 31.1 g/dL (31-35); MEAN CORPUSCULAR VOLUME 94.8 fL (81-99); MONOCYTES # (AUTO) 0.5 (0.2-0.8); MONOCYTES % 7.7 % (4.4-11.3); NEUTROPHILS # (AUTO) 5.6 (2.1-6.9); NEUTROPHILS % 81.5 % (38.7-80.0); PLATELET COUNT 244 x10e3/uL (140-360); RED BLOOD COUNT 2.71 x10e6/uL (4.3-5.7); RED CELL DISTRIBUTION WIDTH 15.6 % (11.7-14.4)
[2019-01-21 06:41] LABS: ANION GAP 9.6 mmol/L (8-16); BLOOD UREA NITROGEN 15 mg/dL (7-26); BUN/CREATININE RATIO 20 (6-25); CALCIUM 8.2 mg/dL (8.4-10.2); CARBON DIOXIDE 24 mmol/L (22-29); CHLORIDE 103 mmol/L (98-107); CREATININE, SERUM 0.76 mg/dL (0.72-1.25); EST GLOMERULAR FILTRATION RATE > 60 ML/MIN (60-); GLUCOSE 112 mg/dL (74-118); POTASSIUM 3.6 mmol/L (3.5-5.1); SODIUM 133 mmol/L (136-145)
[2019-01-21] MEDS: PANTOPRAZOLE 40 MG 10ML VIAL IV SCH ×2 (08:26→22:06)
[2019-01-21] MEDS: CYANOCOBALAMIN INJ 1,000 MCG/ML VIAL IM SCH (08:26)
--- NOTE | 2019-01-21 12:06 | NUR ---
Flushed NG tube and heard gurgling sounds. Could visualize tube and removed it. Spoke with Dr. Jhon Alexander. Orders to monitor for nausea and vomiting and to start Reglan Q6H. Educated patient on walking to get bowels going to prevent the vomiting. He verbalized understanding.
[2019-01-21] MEDS: METOCLOPRAMIDE HCL 10 MG/2ML VIAL IV SCH ×3 (12:56→23:42)
[2019-01-21] MEDS ORDERED: HYDROMORPHONE 1MG/1ML INJ IV PRN (16:30)
--- NOTE | 2019-01-21 17:57 | NUR ---
Nutrition Intervention Note RD Recommendation(s) for Physician: The patient meets criteria for MODERATE protein-calorie malnutrition. -If unable to feed PO within 24hr, rec initiating standard PN (30% dextrose, 10% AA) @ 45mL/hr, providing 1080mL total volume/day, 162g dextrose, 54g AA. Total kcal including lipids of 25g/ daily 991kcal/day. -BG and insulin management per MD -If no sign of refeeding syndrome after 48hr of TPN administration, consider increasing dextrose to 250 g/day to more adequately meet kcal needs. -BMP, Phos, Mag repeat daily; prealbumin, LFT, TG monitor weekly -Continue with TPN per MD until diet is advanced and intake >50% -Advance diet as tolerated to GI soft Plan of Care: RD following, monitoring for tolerance and adequacy Nutrition reason for involvement: NPO/clear liquid x [address] Assessment 01/21 - 53yo M, who was admitted for GI bleed. Pt had bowel resection on 01/19/2019. POD 2. Visited pt in the room. NGT has been removed. Pt is still on PATCH FINISHER pump. No flatus present. NPO/ clear liquids x 4days. If unable to advance diet within 24hr, rec initiating PN. Will continue to monitor and follow. Principal Problems/Diagnoses: GI bleed PMH: GI bleed GI: Abdomen round, tender, flatus absent Skin: surgical abdominal wound Labs: (01/21) Na 133 L, Ca 8.2 L Meds: Reglan, lactated ringer, vitamin B12, protonix Ht: 66in Wt: 195lb BMI: 31.5kg/m2 IBW: 142lb +/- 10% Malnutrition Evaluation (01/21/2019) The patient meets criteria for MODERATE protein-calorie malnutrition. Energy intake: <50% of estimated energy requirements for >5 days Weight loss: 1-2% in 1 week (Acute) Fat loss: None Muscle loss: None Supporting Evidence: Fluid accumulation: none Functional Status: no changes Nutrition Prescription (Diet Order): NPO Estimated Nutritional Needs: Calories: 1430 1625kcal(22-25kcal/kg/d) Weight used: IBW Protein: 98 130g (1.5-2g/kg/d) Weight used: IBW Diet Adequacy: Not meeting calorie needs, Not meeting protein needs Diet Education Needs Assessment: Diet education indicated, but patient not appropriate for education at this time. Nutrition Care Level: high Nutrition Diagnosis: Altered GI function related to bowel resection as evidenced by pt requiring PN as main source of nutrition. Goal: Patient will meet 75-100% of estimated needs by follow up Progress: Not Progressing Interventions: Composition, Rate, Route Monitoring/Evaluation: Total energy intake, Total protein intake, Formula/Solution, Weight change Signed: Swathi Mckeon MS, RD, LD
--- NOTE | 2019-01-21 19:23 | NUR ---
BEDSIDE SHIFT REPORT PERFORMED, RECEIVED PT LAYING SEMI FOWLERS IN BED, AAOX3, RR EVEN AND NON-LABORED, ON ROOM AIR. NO S/SX OF DISTRESS NOTED. DRESSING TO ABD NOTED TO BE CDI WITH ABDOMINAL BINDER. LEFT PT LAYING SEMI FOWLERS IN BED, BED IN LOW LOCKED POSITION, SIDE RAILS UPX2, CALL LIGHT AND PHONE WITHIN REACH.
--- NOTE | 2019-01-21 23:43 | NUR ---
IV TO (R) AC DISCONTINUED, IV CATHETER TIP INTACT, PRESSURE AND DRESSING APPLIED.
[2019-01-22] VITALS (9 sets, daily range): BP systolic 110–123; BP diastolic 57–73
[2019-01-22] MEDS: METOCLOPRAMIDE HCL 10 MG/2ML VIAL IV SCH ×3 (06:01→17:09)
[2019-01-22 06:34] LABS: BASOPHILS % 0.4 % (0.0-1.0); EOSINOPHILS # (AUTO) 0.1 (0.0-0.4); EOSINOPHILS % 1.3 % (0.0-6.0); HEMATOCRIT 24.1 % (38.2-49.6); HEMOGLOBIN 7.8 g/dL (14.0-18.0); LYMPHOCYTES # (AUTO) 1.3 (1.0-3.2); LYMPHOCYTES % 18.1 % (18.0-39.1); MEAN CORPUSCULAR HEMOGLOBIN 30.2 pg (28-32); MEAN CORPUSCULAR HGB CONC 32.4 g/dL (31-35); MEAN CORPUSCULAR VOLUME 93.4 fL (81-99); MONOCYTES # (AUTO) 0.7 (0.2-0.8); NEUTROPHILS # (AUTO) 4.9 (2.1-6.9); NEUTROPHILS % 69.8 % (38.7-80.0); PLATELET COUNT 295 x10e3/uL (140-360); RED BLOOD COUNT 2.58 x10e6/uL (4.3-5.7); RED CELL DISTRIBUTION WIDTH 14.9 % (11.7-14.4)
[2019-01-22 06:56] LABS: ANION GAP 12.7 mmol/L (8-16); BLOOD UREA NITROGEN 14 mg/dL (7-26); BUN/CREATININE RATIO 21 (6-25); CALCIUM 8.8 mg/dL (8.4-10.2); CARBON DIOXIDE 25 mmol/L (22-29); CHLORIDE 106 mmol/L (98-107); CREATININE, SERUM 0.68 mg/dL (0.72-1.25); EST GLOMERULAR FILTRATION RATE > 60 ML/MIN (60-); GLUCOSE 97 mg/dL (74-118); POTASSIUM 3.7 mmol/L (3.5-5.1); SODIUM 140 mmol/L (136-145)
--- NOTE | 2019-01-22 07:00 | NUR ---
RECEIVED PT LYING IN BED WITH EYES OPEN AND TV ON, AT BEDSIDE. PATIENT DENIES PAIN AT THIS TIME. DRESSING TO ABDOMEN CLEAN DRY AND INTACT. CALL LIGHT WITHIN REACH.
[2019-01-22] MEDS: CYANOCOBALAMIN INJ 1,000 MCG/ML VIAL IM SCH (08:17)
[2019-01-22] MEDS: PANTOPRAZOLE 40 MG 10ML VIAL IV SCH ×2 (08:17→20:52)
[2019-01-22] MEDS ORDERED: HYDROCODONE/APAP 7.5MG-325MG 1 EA TAB PO PRN (16:30)
--- NOTE | 2019-01-22 19:13 | NUR ---
received patient resting in bed, family at bed side. aaox3, stable condition. 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 no needs voiced at this time. bed locked and in lowest position, call light within easy reach.
[2019-01-23] VITALS (7 sets, daily range): BP systolic 105–126; BP diastolic 57–81
[2019-01-23] MEDS: METOCLOPRAMIDE HCL 10 MG/2ML VIAL IV SCH ×2 (00:54→06:36)
[2019-01-23] MEDS: LACTATED RINGER'S 1,000 ML IV SCH ×2 (00:54→09:19)
[2019-01-23 05:46] LABS: BASOPHILS % 0.5 % (0.0-1.0); EOSINOPHILS # (AUTO) 0.1 (0.0-0.4); EOSINOPHILS % 1.9 % (0.0-6.0); HEMATOCRIT 23.1 % (38.2-49.6); HEMOGLOBIN 7.2 g/dL (14.0-18.0); LYMPHOCYTES % 17.7 % (18.0-39.1); MEAN CORPUSCULAR HGB CONC 31.2 g/dL (31-35); MEAN CORPUSCULAR VOLUME 93.1 fL (81-99); MONOCYTES # (AUTO) 0.5 (0.2-0.8); MONOCYTES % 8.8 % (4.4-11.3); NEUTROPHILS # (AUTO) 4.1 (2.1-6.9); NEUTROPHILS % 70.4 % (38.7-80.0); PLATELET COUNT 292 x10e3/uL (140-360); RED BLOOD COUNT 2.48 x10e6/uL (4.3-5.7); RED CELL DISTRIBUTION WIDTH 14.1 % (11.7-14.4)
[2019-01-23] MEDS: CYANOCOBALAMIN INJ 1,000 MCG/ML VIAL IM SCH (09:11)
[2019-01-23] MEDS: PANTOPRAZOLE 40 MG 10ML VIAL IV SCH ×2 (09:11→20:14)
--- NOTE | 2019-01-23 10:21 | NUR ---
REPORTED HGB 7.2 AND DARK STOOLS X2. ORDERED TYPE AND SCREEN LAB HOWEVER STATES HE WILL COME SEE PATIENT TODAY BEFORE DECIDING IF HE WILL ORDER TRANSFUSION.
--- NOTE | 2019-01-23 19:14 | NUR ---
Bedside report and walking rounds complete. Pt resting in bed and in no apparent distress. All safety measures ensured and pt call gerber near. Pt has complaints of pain.
[2019-01-24] VITALS (7 sets, daily range): BP systolic 113–124; BP diastolic 68–80
[2019-01-24] MEDS: LACTATED RINGER'S 1,000 ML IV SCH (02:10)
[2019-01-24 06:13] LABS: BASOPHILS % 0.7 % (0.0-1.0); EOSINOPHILS # (AUTO) 0.2 (0.0-0.4); EOSINOPHILS % 2.9 % (0.0-6.0); HEMATOCRIT 23.5 % (38.2-49.6); HEMOGLOBIN 7.6 g/dL (14.0-18.0); LYMPHOCYTES # (AUTO) 1.4 (1.0-3.2); LYMPHOCYTES % 23.4 % (18.0-39.1); MEAN CORPUSCULAR HEMOGLOBIN 29.1 pg (28-32); MEAN CORPUSCULAR HGB CONC 32.3 g/dL (31-35); MONOCYTES # (AUTO) 0.6 (0.2-0.8); MONOCYTES % 10.8 % (4.4-11.3); NEUTROPHILS # (AUTO) 3.6 (2.1-6.9); PLATELET COUNT 305 x10e3/uL (140-360); RED BLOOD COUNT 2.61 x10e6/uL (4.3-5.7); RED CELL DISTRIBUTION WIDTH 14.3 % (11.7-14.4)
--- NOTE | 2019-01-24 07:07 | NUR ---
Bedside report and walking rounds complete with day shift RN.
--- NOTE | 2019-01-24 07:10 | NUR ---
Morning rounds completed. Patient resting in bed, no c/o of pain or signs of distress. Bed locked and in low position, call light placed within reach. Family at bedside. Patient instructed to call for assistance if needed. Will continue to monitor.
[2019-01-24] MEDS: CYANOCOBALAMIN INJ 1,000 MCG/ML VIAL IM SCH (09:03)
[2019-01-24] MEDS: PANTOPRAZOLE 40 MG 10ML VIAL IV SCH ×2 (09:03→20:49)
--- NOTE | 2019-01-24 14:55 | NUR ---
Visit made by the Spiritual Care Department Pastoral Visitor, Sd Burris. PV provided pastoral presence, prayer, communion, hospitality, and supportive listening. Pastoral Visitor informed pt/family of the scope of [facility] and availability. MARY ORTIZ Acute Care Clinical Nurse Specialist Spiritual Care Department O: [phone] Pager: [phone] ([phone] calling from)
--- NOTE | 2019-01-24 18:57 | NUR ---
Bedside report given to night nurse. Patient in stable condition.
--- NOTE | 2019-01-24 19:45 | NUR ---
INITIAL ASSESSMENT COMPLETE, CALL LIGHT IN REACH, FAMILY AT BEDSIDE, NO DISTRESS NOTED, VS STABLE, ABD BINDER ON PT, BM TODAY, NO PAIN NOTED AT THIS TIME, IV INTACT, TOLD TO CALL FOR NEEDS
[2019-01-25] VITALS (8 sets, daily range): BP systolic 111–125; BP diastolic 66–79
--- NOTE | 2019-01-25 | NUR ---
PT IN BED, NO DISTRESS NOTED, CALL LIGHT IN REACH, FAMILY AT BEDSIDE, VS STABLE, TOLD TO CALL FOR NEEDS
--- NOTE | 2019-01-25 04:00 | NUR ---
VS STABLE, NO DISTRESS NOTED, ROOM CLEANED, FAMILY AT BEDSIDE, PT AWAKE, NO OTHER NEEDS
[2019-01-25] MEDS: PANTOPRAZOLE 40 MG 10ML VIAL IV SCH (08:08)
[2019-01-25] MEDS: CYANOCOBALAMIN INJ 1,000 MCG/ML VIAL IM SCH (08:08)
[2019-01-25 12:46] LABS: BASOPHILS % 0.5 % (0.0-1.0); EOSINOPHILS # (AUTO) 0.2 (0.0-0.4); HEMATOCRIT 27.5 % (38.2-49.6); HEMOGLOBIN 8.8 g/dL (14.0-18.0); LYMPHOCYTES # (AUTO) 1.6 (1.0-3.2); LYMPHOCYTES % 20.9 % (18.0-39.1); MEAN CORPUSCULAR HEMOGLOBIN 29.3 pg (28-32); MEAN CORPUSCULAR VOLUME 91.7 fL (81-99); MONOCYTES # (AUTO) 0.7 (0.2-0.8); MONOCYTES % 9.2 % (4.4-11.3); NEUTROPHILS % 64.3 % (38.7-80.0); PLATELET COUNT 419 x10e3/uL (140-360); RED CELL DISTRIBUTION WIDTH 14.6 % (11.7-14.4)
[2019-01-25 12:54] LABS: ANION GAP 15.1 mmol/L (8-16); BLOOD UREA NITROGEN 13 mg/dL (7-26); BUN/CREATININE RATIO 15 (6-25); CALCIUM 9.3 mg/dL (8.4-10.2); CARBON DIOXIDE 24 mmol/L (22-29); CHLORIDE 104 mmol/L (98-107); CREATININE, SERUM 0.84 mg/dL (0.72-1.25); EST GLOMERULAR FILTRATION RATE > 60 ML/MIN (60-); GLUCOSE 121 mg/dL (74-118); POTASSIUM 4.1 mmol/L (3.5-5.1); SODIUM 139 mmol/L (136-145)
[2019-01-25 13:58] LABS: EOSINOPHILS % (MANUAL) 2 % (0-7); LYMPHOCYTES % (MANUAL) 23 % (19-48); MONOCYTES % (MANUAL) 8 % (3.4-9.0); NEUTROPHILS % (MANUAL) 67 % (40-74)
[2019-01-25 13:59] LABS: PLATELET ESTIMATE MODERATELY INCREASED; PLATELET MORPHOLOGY COMMENT MODERATE LARGE
--- NOTE | 2019-01-25 14:38 | NUR ---
Nutrition Intervention Note RD Recommendation(s) for Physician: -Consider GI soft diet per MD. -The patient meets criteria for MODERATE protein-calorie malnutrition. Plan of Care: RD following, monitoring for tolerance and adequacy Nutrition reason for involvement: follow up RD Assessment 01/25: Follow up: Pt was seen resting in bed with at bedside. Pt has been advanced to a regular diet and has been tolerating his diet so far. Pt denied N/V/C/D/chewing or swallowing issues as well as any food allergies. LBM: not recorded. Pt denied ONS. Pt ate 100% of his meals yesterday per FS. Possible d/c today. Will continue to monitor. 01/21 - 53yo M, who was admitted for GI bleed. Pt had bowel resection on 01/19/2019. POD 2. Visited pt in the room. NGT has been removed. Pt is still on CHANCELLOR pump. No flatus present. NPO/ clear liquids x 4days. If unable to advance diet within 24hr, rec initiating PN. Will continue to monitor and follow. Principal Problems/Diagnoses: GI bleed PMH: GI bleed GI: Abdomen soft, non tender, round Skin: surgical abdominal wound Labs: 01/25: Gluc 121 H (01/21) Na 133 L, Ca 8.2 L Meds: Reglan, lactated ringer, vitamin B12, protonix Ht: 66in Wt: 197lb BMI: 31.8kg/m2 IBW: 142lb +/- 10% Malnutrition Evaluation (01/25/2019) The patient meets criteria for MODERATE protein-calorie malnutrition. Energy intake: <50% of estimated energy requirements for >5 days Weight loss: 1-2% in 1 week (Acute) Fat loss: None Muscle loss: None Supporting Evidence: Fluid accumulation: none Functional Status: no changes Nutrition Prescription (Diet Order): NPO Estimated Nutritional Needs: Calories: 1430 1625kcal (22-25kcal/kg/d) Weight used: IBW Protein: 98 130g (1.5-2g/kg/d) Weight used: IBW Diet Adequacy: meeting calorie needs, meeting protein needs Diet Education Needs Assessment: Diet education not indicated, pt is on regular diet Nutrition Care Level: high Nutrition Diagnosis: Altered GI function related to bowel resection as evidenced by pt requiring PN as main source of nutrition. Goal: Patient will meet 75-100% of estimated needs by follow up Progress: Progressing Interventions: Modified diet (fiber), M/ supplementation, prescription medication Monitoring/Evaluation: Total energy intake, Total protein intake, Weight change, modified diet -Signed: Deana Mckeon RD, ANGELA Addendum: 01/25/19 at 1440 by Deana Mckoen DIET Pt nutrition care level: mod
--- NOTE | 2019-01-25 18:45 | NUR ---
PLACED CALL TO DR. Renetta MERIDA, PATIENT REPORTED HAVING, CHEST WALL PAIN WAITING FOR CALL BACK.
--- NOTE | 2019-01-25 19:36 | NUR ---
DR. MERIDA RETURNED CALL MADE AWARE OF PATIENT'S CHEST PAIN, AND VITAL SIGNS, 124/76 HR 83 OXYGEN 98% ROOM AIR, RESPIRATIONS 18. RECEIVED ORDERS TO DISCHARGE PATIENT HOME INSTRUCT HIM TO TAKE TYLENOL FOR PAIN.
--- NOTE | 2019-01-25 19:43 | NUR ---
PATIENT DISCHARGED HOME VERBALIZED UNDERSTANDING OF DISCHARGE INSTRUCTIONS.
--- NOTE | 2019-01-27 17:32 | Discharge Summary ---
HOSPITAL COURSE: Mr. Peralta is a pleasant 53-year-old man, who presented to the emergency room with a complaint of recurring gastrointestinal bleeding. He has had 2 previous episodes over the past couple of years. Initial evaluation showed guaiac-positive stools. He had recent colonoscopy. He was sent for a bleeding scan, which was abnormal and CT of the abdomen with contrast suggested possible small bowel mass. Therefore on the , he was taken to the operating room by Dr. Reed, had laparotomy and had resection of a mass, please see his report. It was submitted for Pathology, but that is still pending at this time. The patient was treated with NG tube and IV fluids, making slow and gradual progress. He began to take liquids and by the , was eager to be discharge to home. He will follow up with Dr. Randall Reed and Dr. Jose Gunderson for further management of the gastrointestinal bleeding and mass. Pathology still pending. DISCHARGE DIAGNOSES: 1. Gastrointestinal bleeding. 2. Gastrointestinal mass. 3. Successful surgery. MD DURGA White/MAGDALENA /[id number] cc: MD Randall Pike MD Ramon A Pineda, MD
== END 2019-01-25 19:36 | disposition home or self-care (01) | DRG 982 ==
LOC: ER 20:10 → ERHOLD 22:20 → MED/SURG3 22:52 → ICU 01-17 18:07 → MED/SURG 01-19 15:37
PROVIDERS: ADMIT Internal Medicine Cardiovascular Disease; ATTEND Internal Medicine Cardiovascular Disease
PROC: 0DBH8ZX Excision of Cecum, Via Natural or Artificial Opening Endoscopic, Diagnostic (ICD-10-PCS; 2019-01-16)
PROC: 0DBL8ZX Excision of Transverse Colon, Via Natural or Artificial Opening Endoscopic, Diagnostic (ICD-10-PCS; 2019-01-16)
PROC: 0DB78ZX Excision of Stomach, Pylorus, Via Natural or Artificial Opening Endoscopic, Diagnostic (ICD-10-PCS; 2019-01-16)
PROC: 30233N1 Transfusion of Nonautologous Red Blood Cells into Peripheral Vein, Percutaneous Approach (ICD-10-PCS; 2019-01-18)
PROC: 0DT80ZZ Resection of Small Intestine, Open Approach (ICD-10-PCS; principal; 2019-01-19 07:54)
DX: C49.A3 Gastrointestinal stromal tumor of small intestine (principal); D62 Acute posthemorrhagic anemia; K63.9 Disease of intestine, unspecified; D48.1 Neoplasm of uncertain behavior of connective and other soft tissue; R10.13 Epigastric pain; K44.9 Diaphragmatic hernia without obstruction or gangrene; K57.90 Diverticulosis of intestine, part unspecified, without perforation or abscess without bleeding
CPT/HCPCS: 36415; 74177; 78278; 80048; 80053; 81001; 82270; 82607; 82728; 82746; 83540; 83735; 84100; 84466; 85025; 85045; 85610; 86850; 86900; 86920; 88307; 88309; 88331; 88342; 93005; 99284; A9512; J0694; J1100; J1885; J2001; J2250; J2405; J2765; J3010; J3420; J7050; J7121; P9016; Q9967

== ENCOUNTER 2021-01-08 20:55 | Inpatient (IN) | payer BC ==
[~2021-01-08] VITALS: Ht 167.6 cm; Wt 85.7 kg
[~2021-01-08 20:55] MED LIST changes: +OMEPRAZOLE40 MG
[2021-01-08] MEDS ORDERED: DEXAMETHASONE SOD PHOS INJ 4 MG/ML VIAL IV ONE (21:45)
[2021-01-08] MEDS ORDERED: ACETAMINOPHEN 325 MG TAB PO ONE (21:45)
[2021-01-08] MEDS ORDERED: HYDROCODONE/APAP 7.5MG-325MG 1 EA TAB PO PRN (22:15)
[2021-01-08] MEDS ORDERED: DIPHENHYDRAMINE HCL INJ 50 MG/ML VIAL IV PRN (22:15)
[2021-01-08] MEDS ORDERED: ZOLPIDEM TARTRATE 5 MG TAB PO PRN (22:15)
[2021-01-08] MEDS ORDERED: ONDANSETRON HCL INJ 2MG/ML 2ML 2 MG/ML VIAL IV PRN (22:15)
[2021-01-08] MEDS ORDERED: ACETAMINOPHEN 325 MG TAB PO PRN (22:15)
[2021-01-08] MEDS ORDERED: ACETAMINOPHEN 325 MG TAB ONE (22:19)
[2021-01-08] MEDS ORDERED: DEXAMETHASONE SOD PHOS INJ 4 MG/ML VIAL ONE (22:19)
[2021-01-08] MEDS ORDERED: DEXTROSE 50% SYRINGE 50 ML IV PRN (22:45)
[2021-01-09] VITALS (9 sets, daily range): BP systolic 126–159; BP diastolic 81–95
[2021-01-09] MEDS ORDERED: DEXTROSE 50% SYRINGE 50 ML IV PRN (00:45)
[2021-01-09] MEDS ORDERED: ACETAMINOPHEN 325 MG TAB PO PRN (00:45)
[2021-01-09] MEDS ORDERED: DIPHENHYDRAMINE HCL 25 MG CAP PO PRN (00:45)
[2021-01-09] MEDS ORDERED: DOCUSATE SODIUM 100 MG CAP PO PRN (00:45)
[2021-01-09] MEDS ORDERED: ONDANSETRON HCL INJ 2MG/ML 2ML 2 MG/ML VIAL IV PRN (00:45)
[2021-01-09] MEDS ORDERED: HYDRALAZINE HCL 20 MG/ML VIAL IV PRN (00:45)
[2021-01-09 06:22] LABS: BASOPHILS % 0.1 % (0.0-1.0); HEMATOCRIT 43.8 % (38.2-49.6); HEMOGLOBIN 14.7 g/dL (14.0-18.0); LYMPHOCYTES # (AUTO) 0.8 (1.0-3.2); LYMPHOCYTES % 8.6 % (18.0-39.1); MEAN CORPUSCULAR HEMOGLOBIN 30.9 pg (28-32); MEAN CORPUSCULAR HGB CONC 33.6 g/dL (31-35); MONOCYTES # (AUTO) 0.3 (0.2-0.8); MONOCYTES % 3.6 % (4.4-11.3); NEUTROPHILS % 85.7 % (38.7-80.0); PLATELET COUNT 198 x10e3/uL (140-360); RED BLOOD COUNT 4.76 x10e6/uL (4.3-5.7); RED CELL DISTRIBUTION WIDTH 12.7 % (11.7-14.4)
[2021-01-09] MEDS ORDERED: FAMOTIDINE 20 MG TAB PO ONE (07:30)
[2021-01-09] MEDS: INSULIN REGULAR, HUMAN 100 UNIT/1 ML SQ SCH ×4 (07:30→21:00)
[2021-01-09 07:43] LABS: ANION GAP 14.8 mmol/L (8-16); CALCIUM 8.7 mg/dL (8.4-10.2); CREATININE, SERUM 0.8 mg/dL (0.72-1.25); POTASSIUM 3.8 mmol/L (3.5-5.1)
[2021-01-09] MEDS ORDERED: REMDESIVIR 200MG 200 MG in SODIUM CHLORIDE 0.9% 100 ML 100 ML IV ONE (08:00)
[2021-01-09] MEDS: ASCORBIC ACID 500 MG TAB PO SCH (08:01)
[2021-01-09] MEDS: DEXAMETHASONE SOD PHOS 10 MG/1 ML VIAL IV SCH (08:01)
[2021-01-09] MEDS ORDERED: CEFTRIAXONE 1 GM in SODIUM CHLORIDE 0.9% 50ML 50 ML IV SCH (09:00)
[2021-01-09] MEDS: ALBUTEROL SULFATE HFA 8GM INHALATION AEROSOL INH SCH ×2 (11:27→19:00)
[2021-01-09] MEDS: BENZONATATE 100 MG CAP PO PRN ×2 (11:27→17:00)
[2021-01-09] MEDS: SODIUM CHLORIDE 0.9% 1000ML 1,000 ML IV SCH ×2 (14:11)
[2021-01-09] MEDS: FAMOTIDINE 20 MG TAB PO SCH (16:01)
[2021-01-09] MEDS: ENOXAPARIN SOD INJ 40 MG/0.4 ML SYR SC SCH (16:12)
[2021-01-09] MEDS ORDERED: ENOXAPARIN SOD INJ 40 MG/0.4 ML SYR SC SCH (17:00)
[2021-01-09] MEDS ORDERED: FUROSEMIDE INJ 10 MG/ML 4 ML VIAL IV ONE (22:45)
[2021-01-09] MEDS ORDERED: ALBUTEROL SULFATE HFA 8GM INHALATION AEROSOL INH PRN (22:45)
[2021-01-09] MEDS: ACETAMINOPHEN 325 MG TAB PO PRN (23:17)
[2021-01-10] VITALS (8 sets, daily range): BP systolic 138–163; BP diastolic 84–95
[2021-01-10] MEDS: BENZONATATE 100 MG CAP PO PRN (03:08)
[2021-01-10 05:10] LABS: BASOPHILS % 0.1 % (0.0-1.0); HEMATOCRIT 42.8 % (38.2-49.6); HEMOGLOBIN 14.5 g/dL (14.0-18.0); LYMPHOCYTES # (AUTO) 0.9 (1.0-3.2); LYMPHOCYTES % 5.2 % (18.0-39.1); MEAN CORPUSCULAR HEMOGLOBIN 30.7 pg (28-32); MEAN CORPUSCULAR HGB CONC 33.9 g/dL (31-35); MEAN CORPUSCULAR VOLUME 90.5 fL (81-99); MONOCYTES # (AUTO) 1.3 (0.2-0.8); MONOCYTES % 7.2 % (4.4-11.3); NEUTROPHILS # (AUTO) 14.8 (2.1-6.9); NEUTROPHILS % 85.3 % (38.7-80.0); PLATELET COUNT 238 x10e3/uL (140-360); RED BLOOD COUNT 4.73 x10e6/uL (4.3-5.7); RED CELL DISTRIBUTION WIDTH 12.7 % (11.7-14.4)
[2021-01-10 05:51] LABS: ANION GAP 15.6 mmol/L (8-16); CALCIUM 8.4 mg/dL (8.4-10.2); CREATININE, SERUM 0.83 mg/dL (0.72-1.25); POTASSIUM 3.6 mmol/L (3.5-5.1)
[2021-01-10] MEDS: ALBUTEROL SULFATE HFA 8GM INHALATION AEROSOL INH SCH ×3 (07:20→21:42)
[2021-01-10] MEDS: INSULIN REGULAR, HUMAN 100 UNIT/1 ML SQ SCH ×4 (07:30→20:36)
[2021-01-10] MEDS ORDERED: REMDESIVIR 100MG 100 MG in SODIUM CHLORIDE 0.9% 100 ML 100 ML IV SCH (08:00)
[2021-01-10] MEDS: DEXAMETHASONE SOD PHOS 10 MG/1 ML VIAL IV SCH (09:03)
[2021-01-10] MEDS: ASCORBIC ACID 500 MG TAB PO SCH (09:03)
[2021-01-10] MEDS: FAMOTIDINE 20 MG TAB PO SCH ×2 (09:03→17:15)
[2021-01-10] MEDS ORDERED: TOCILIZUMAB 400 MG in SODIUM CHLORIDE 0.9% 100 ML IV STA (09:19)
[2021-01-10] MEDS: REMDESIVIR 100MG 100 MG IV SCH (12:00)
[2021-01-10] MEDS: BARICITINIB 2 MG TABLET PO SCH (17:15)
[2021-01-10] MEDS: ENOXAPARIN SOD INJ 40 MG/0.4 ML SYR SC SCH (17:15)
[2021-01-10] MEDS: ACETAMINOPHEN 325 MG TAB PO PRN (21:00)
[2021-01-10] MEDS: AZTREONAM 1 GM/NS 50 ML 50 ML IV SCH (22:09)
[2021-01-11] VITALS (8 sets, daily range): BP systolic 127–151; BP diastolic 78–95
[2021-01-11 06:06] LABS: BASOPHILS % 0.2 % (0.0-1.0); HEMOGLOBIN 14.5 g/dL (14.0-18.0); LYMPHOCYTES # (AUTO) 1.3 (1.0-3.2); LYMPHOCYTES % 8.7 % (18.0-39.1); MEAN CORPUSCULAR HGB CONC 33.7 g/dL (31-35); MEAN CORPUSCULAR VOLUME 92.1 fL (81-99); MONOCYTES # (AUTO) 1.3 (0.2-0.8); MONOCYTES % 8.9 % (4.4-11.3); NEUTROPHILS # (AUTO) 11.6 (2.1-6.9); NEUTROPHILS % 78.3 % (38.7-80.0); PLATELET COUNT 227 x10e3/uL (140-360); RED BLOOD COUNT 4.67 x10e6/uL (4.3-5.7)
[2021-01-11] MEDS: INSULIN REGULAR, HUMAN 100 UNIT/1 ML SQ SCH ×4 (07:30→21:59)
[2021-01-11] MEDS: FAMOTIDINE 20 MG TAB PO SCH ×2 (07:59→16:19)
[2021-01-11] MEDS: DEXAMETHASONE SOD PHOS 10 MG/1 ML VIAL IV SCH (07:59)
[2021-01-11] MEDS: ACETAMINOPHEN 325 MG TAB PO PRN ×2 (08:06→16:30)
[2021-01-11] MEDS: BENZONATATE 100 MG CAP PO PRN (08:06)
[2021-01-11] MEDS: ASCORBIC ACID 500 MG TAB PO SCH (08:07)
[2021-01-11] MEDS: AZTREONAM 1 GM/NS 50 ML 50 ML IV SCH ×2 (08:52→21:49)
[2021-01-11] MEDS: REMDESIVIR 100MG 100 MG IV SCH (12:33)
[2021-01-11] MEDS: BARICITINIB 2 MG TABLET PO SCH (12:33)
[2021-01-11] MEDS: ENOXAPARIN SOD INJ 40 MG/0.4 ML SYR SC SCH (16:19)
[2021-01-11] MEDS: ALBUTEROL SULFATE HFA 8GM INHALATION AEROSOL INH SCH (21:59)
[2021-01-12] VITALS (8 sets, daily range): BP systolic 117–143; BP diastolic 72–98
[2021-01-12 04:50] LABS: BASOPHILS # (AUTO) 0.1 (0.0-0.1); BASOPHILS % 0.3 % (0.0-1.0); HEMATOCRIT 43.4 % (38.2-49.6); HEMOGLOBIN 14.5 g/dL (14.0-18.0); LYMPHOCYTES # (AUTO) 1.5 (1.0-3.2); MEAN CORPUSCULAR HEMOGLOBIN 30.9 pg (28-32); MEAN CORPUSCULAR HGB CONC 33.4 g/dL (31-35); MEAN CORPUSCULAR VOLUME 92.5 fL (81-99); MONOCYTES # (AUTO) 1.6 (0.2-0.8); MONOCYTES % 8.6 % (4.4-11.3); NEUTROPHILS # (AUTO) 14.3 (2.1-6.9); NEUTROPHILS % 77.4 % (38.7-80.0); PLATELET COUNT 232 x10e3/uL (140-360); RED BLOOD COUNT 4.69 x10e6/uL (4.3-5.7)
[2021-01-12 05:12] LABS: ANION GAP 16.1 mmol/L (8-16); CALCIUM 8.5 mg/dL (8.4-10.2); CREATININE, SERUM 0.79 mg/dL (0.72-1.25); POTASSIUM 4.1 mmol/L (3.5-5.1)
[2021-01-12] MEDS: INSULIN REGULAR, HUMAN 100 UNIT/1 ML SQ SCH ×4 (07:30→21:59)
[2021-01-12] MEDS: BARICITINIB 2 MG TABLET PO SCH ×2 (09:00→12:27)
[2021-01-12] MEDS: ALBUTEROL SULFATE HFA 8GM INHALATION AEROSOL INH SCH ×2 (09:00→19:05)
[2021-01-12] MEDS: ACETAMINOPHEN 325 MG TAB PO PRN (09:14)
[2021-01-12] MEDS: AZTREONAM 1 GM/NS 50 ML 50 ML IV SCH ×2 (09:14→21:58)
[2021-01-12] MEDS: BENZONATATE 100 MG CAP PO PRN (09:14)
[2021-01-12] MEDS: ASCORBIC ACID 500 MG TAB PO SCH (09:14)
[2021-01-12] MEDS: FAMOTIDINE 20 MG TAB PO SCH ×2 (09:14→16:53)
[2021-01-12] MEDS: DEXAMETHASONE SOD PHOS 10 MG/1 ML VIAL IV SCH (10:11)
[2021-01-12] MEDS: REMDESIVIR 100MG 100 MG IV SCH (12:27)
[2021-01-12] MEDS: ENOXAPARIN SOD INJ 40 MG/0.4 ML SYR SC SCH (16:53)
[2021-01-13] VITALS (7 sets, daily range): BP systolic 106–133; BP diastolic 65–75
[2021-01-13 05:38] LABS: BASOPHILS # (AUTO) 0.1 (0.0-0.1); BASOPHILS % 0.3 % (0.0-1.0); EOSINOPHILS % 0.1 % (0.0-6.0); HEMATOCRIT 39.9 % (38.2-49.6); HEMOGLOBIN 13.2 g/dL (14.0-18.0); LYMPHOCYTES # (AUTO) 1.5 (1.0-3.2); LYMPHOCYTES % 7.9 % (18.0-39.1); MEAN CORPUSCULAR HGB CONC 33.1 g/dL (31-35); MEAN CORPUSCULAR VOLUME 93.7 fL (81-99); MONOCYTES # (AUTO) 1.3 (0.2-0.8); MONOCYTES % 6.9 % (4.4-11.3); NEUTROPHILS # (AUTO) 14.6 (2.1-6.9); NEUTROPHILS % 78.4 % (38.7-80.0); PLATELET COUNT 214 x10e3/uL (140-360); RED BLOOD COUNT 4.26 x10e6/uL (4.3-5.7); RED CELL DISTRIBUTION WIDTH 12.5 % (11.7-14.4)
[2021-01-13 06:29] LABS: ANION GAP 15.7 mmol/L (8-16); CREATININE, SERUM 0.63 mg/dL (0.72-1.25); POTASSIUM 3.7 mmol/L (3.5-5.1)
[2021-01-13] MEDS: INSULIN REGULAR, HUMAN 100 UNIT/1 ML SQ SCH ×4 (07:30→21:00)
[2021-01-13] MEDS: DEXAMETHASONE SOD PHOS 10 MG/1 ML VIAL IV SCH (08:18)
[2021-01-13] MEDS: FAMOTIDINE 20 MG TAB PO SCH ×2 (08:20→15:48)
[2021-01-13] MEDS: ASCORBIC ACID 500 MG TAB PO SCH (08:20)
[2021-01-13] MEDS: ACETAMINOPHEN 325 MG TAB PO PRN (08:22)
[2021-01-13 09:25] LABS: BAND NEUTROPHILS % (MANUAL) 2 %; LYMPHOCYTES % (MANUAL) 6 % (19-48); MONOCYTES % (MANUAL) 9 % (3.4-9.0); NEUTROPHILS % (MANUAL) 83 % (40-74)
[2021-01-13 09:27] LABS: PLATELET ESTIMATE ADEQUATE; PLATELET MORPHOLOGY COMMENT NORMAL; RBC MORPHOLOGY COMMENT NORMAL
[2021-01-13] MEDS: ALBUTEROL SULFATE HFA 8GM INHALATION AEROSOL INH SCH ×2 (09:30→19:00)
[2021-01-13] MEDS: AZTREONAM 1 GM/NS 50 ML 50 ML IV SCH ×2 (11:15→21:00)
[2021-01-13] MEDS: REMDESIVIR 100MG 100 MG IV SCH (12:36)
[2021-01-13] MEDS ORDERED: Vancomycin IV 1 GM in SODIUM CHLORIDE 0.9% 250ML 250 ML IV ONE (13:00)
[2021-01-13] MEDS ORDERED: VANCOMYCIN HCL 1GM/NS 250 ML BAG IV ONE (13:00)
[2021-01-13] MEDS: BARICITINIB 2 MG TABLET PO SCH (16:12)
[2021-01-13] MEDS: ENOXAPARIN SOD INJ 40 MG/0.4 ML SYR SC SCH (16:12)
[2021-01-14] VITALS (8 sets, daily range): BP systolic 105–131; BP diastolic 74–79
[2021-01-14 05:54] LABS: BASOPHILS # (AUTO) 0.1 (0.0-0.1); BASOPHILS % 0.5 % (0.0-1.0); HEMATOCRIT 42.8 % (38.2-49.6); HEMOGLOBIN 14.3 g/dL (14.0-18.0); LYMPHOCYTES # (AUTO) 1.8 (1.0-3.2); LYMPHOCYTES % 8.3 % (18.0-39.1); MEAN CORPUSCULAR HGB CONC 33.4 g/dL (31-35); MEAN CORPUSCULAR VOLUME 92.6 fL (81-99); MONOCYTES # (AUTO) 1.3 (0.2-0.8); MONOCYTES % 6.1 % (4.4-11.3); NEUTROPHILS # (AUTO) 16.6 (2.1-6.9); NEUTROPHILS % 77.5 % (38.7-80.0); PLATELET COUNT 223 x10e3/uL (140-360); RED BLOOD COUNT 4.62 x10e6/uL (4.3-5.7); RED CELL DISTRIBUTION WIDTH 12.3 % (11.7-14.4)
[2021-01-14 06:39] LABS: CALCIUM 8.5 mg/dL (8.4-10.2); CREATININE, SERUM 0.75 mg/dL (0.72-1.25)
[2021-01-14] MEDS: INSULIN REGULAR, HUMAN 100 UNIT/1 ML SQ SCH ×4 (08:29→21:53)
[2021-01-14] MEDS: FAMOTIDINE 20 MG TAB PO SCH ×2 (08:29→15:59)
[2021-01-14] MEDS: DEXAMETHASONE SOD PHOS 10 MG/1 ML VIAL IV SCH (08:29)
[2021-01-14] MEDS: ALBUTEROL SULFATE HFA 8GM INHALATION AEROSOL INH SCH (08:29)
[2021-01-14] MEDS: ASCORBIC ACID 500 MG TAB PO SCH (08:29)
[2021-01-14] MEDS: AZTREONAM 1 GM/NS 50 ML 50 ML IV SCH (09:56)
[2021-01-14] MEDS: VANCOMYCIN HCL 125 MG CAPSULE PO SCH ×2 (13:30→18:00)
[2021-01-14] MEDS: ENOXAPARIN SOD INJ 40 MG/0.4 ML SYR SC SCH (16:26)
[2021-01-14] MEDS: BARICITINIB 1 MG TABLET PO SCH (16:26)
[2021-01-15] VITALS (9 sets, daily range): BP systolic 98–118; BP diastolic 64–82
[2021-01-15 04:48] LABS: BASOPHILS # (AUTO) 0.1 (0.0-0.1); BASOPHILS % 0.7 % (0.0-1.0); EOSINOPHILS % 0.1 % (0.0-6.0); HEMATOCRIT 46.7 % (38.2-49.6); LYMPHOCYTES # (AUTO) 1.7 (1.0-3.2); LYMPHOCYTES % 8.3 % (18.0-39.1); MEAN CORPUSCULAR HEMOGLOBIN 31.1 pg (28-32); MEAN CORPUSCULAR HGB CONC 32.1 g/dL (31-35); MEAN CORPUSCULAR VOLUME 96.7 fL (81-99); MONOCYTES # (AUTO) 1.2 (0.2-0.8); MONOCYTES % 5.8 % (4.4-11.3); NEUTROPHILS # (AUTO) 15.3 (2.1-6.9); NEUTROPHILS % 77.2 % (38.7-80.0); PLATELET COUNT 200 x10e3/uL (140-360); RED BLOOD COUNT 4.83 x10e6/uL (4.3-5.7); RED CELL DISTRIBUTION WIDTH 12.2 % (11.7-14.4)
[2021-01-15 05:11] LABS: ALBUMIN 2.9 g/dL (3.5-5.0); ALBUMIN/GLOBULIN RATIO 0.8 (0.8-2.0); CALCIUM 8.8 mg/dL (8.4-10.2); CREATININE, SERUM 0.79 mg/dL (0.72-1.25)
[2021-01-15] MEDS: VANCOMYCIN HCL 125 MG CAPSULE PO SCH ×5 (05:49→23:15)
[2021-01-15] MEDS: INSULIN REGULAR, HUMAN 100 UNIT/1 ML SQ SCH ×4 (07:30→21:00)
[2021-01-15] MEDS: FAMOTIDINE 20 MG TAB PO SCH ×2 (08:42→17:01)
[2021-01-15] MEDS: ASCORBIC ACID 500 MG TAB PO SCH (08:42)
[2021-01-15] MEDS: DEXAMETHASONE SOD PHOS 10 MG/1 ML VIAL IV SCH (08:43)
[2021-01-15] MEDS: BARICITINIB 1 MG TABLET PO SCH (09:37)
[2021-01-15] MEDS: ENOXAPARIN SOD INJ 40 MG/0.4 ML SYR SC SCH ×2 (12:53→21:00)
[2021-01-15] MEDS: ALBUTEROL SULFATE HFA 8GM INHALATION AEROSOL INH SCH (19:50)
[2021-01-15] MEDS: ACETAMINOPHEN 325 MG TAB PO PRN (21:00)
[2021-01-16] VITALS (8 sets, daily range): BP systolic 103–137; BP diastolic 69–82
[2021-01-16 05:03] LABS: BASOPHILS # (AUTO) 0.1 (0.0-0.1); BASOPHILS % 0.4 % (0.0-1.0); EOSINOPHILS # (AUTO) 0.2 (0.0-0.4); EOSINOPHILS % 0.8 % (0.0-6.0); HEMATOCRIT 45.3 % (38.2-49.6); HEMOGLOBIN 15.4 g/dL (14.0-18.0); LYMPHOCYTES # (AUTO) 1.1 (1.0-3.2); LYMPHOCYTES % 6.3 % (18.0-39.1); MEAN CORPUSCULAR HEMOGLOBIN 31.5 pg (28-32); MEAN CORPUSCULAR VOLUME 92.6 fL (81-99); MONOCYTES # (AUTO) 0.9 (0.2-0.8); NEUTROPHILS # (AUTO) 14.5 (2.1-6.9); NEUTROPHILS % 81.6 % (38.7-80.0); PLATELET COUNT 206 x10e3/uL (140-360); RED BLOOD COUNT 4.89 x10e6/uL (4.3-5.7); RED CELL DISTRIBUTION WIDTH 12.2 % (11.7-14.4)
[2021-01-16 05:38] LABS: ANION GAP 12.9 mmol/L (8-16); CALCIUM 8.5 mg/dL (8.4-10.2); CREATININE, SERUM 0.73 mg/dL (0.72-1.25); POTASSIUM 3.9 mmol/L (3.5-5.1)
[2021-01-16] MEDS: VANCOMYCIN HCL 125 MG CAPSULE PO SCH ×2 (06:25→12:00)
[2021-01-16] MEDS: ALBUTEROL SULFATE HFA 8GM INHALATION AEROSOL INH SCH ×2 (07:20→19:35)
[2021-01-16] MEDS: INSULIN REGULAR, HUMAN 100 UNIT/1 ML SQ SCH ×4 (07:30→20:50)
[2021-01-16] MEDS: DEXAMETHASONE SOD PHOS 10 MG/1 ML VIAL IV SCH (08:28)
[2021-01-16] MEDS: ENOXAPARIN SOD INJ 40 MG/0.4 ML SYR SC SCH ×2 (08:28→20:50)
[2021-01-16] MEDS: ASCORBIC ACID 500 MG TAB PO SCH (08:28)
[2021-01-16] MEDS: FAMOTIDINE 20 MG TAB PO SCH ×2 (08:28→16:26)
[2021-01-16] MEDS ORDERED: BARICITINIB 2 MG TABLET PO SCH ×2 (09:00→10:00)
[2021-01-16 10:37] LABS: LYMPHOCYTES % (MANUAL) 5 % (19-48); METAMYELOCYTES % (MANUAL) 2 % (0-0); NEUTROPHILS % (MANUAL) 89 % (40-74); PLATELET ESTIMATE ADEQUATE; PLATELET MORPHOLOGY COMMENT NORMAL; RBC MORPHOLOGY COMMENT NORMAL
[2021-01-16] MEDS: METRONIDAZOLE 500MG/NS 100ML 100 ML IV SCH ×2 (16:26→22:15)
[2021-01-16] MEDS: CEFEPIME 2 GM in SODIUM CHLORIDE 0.9% 100 ML IV SCH (20:50)
[2021-01-17] VITALS (8 sets, daily range): BP systolic 94–121; BP diastolic 45–91
[2021-01-17 05:02] LABS: BASOPHILS # (AUTO) 0.1 (0.0-0.1); BASOPHILS % 0.3 % (0.0-1.0); EOSINOPHILS # (AUTO) 0.1 (0.0-0.4); EOSINOPHILS % 0.4 % (0.0-6.0); HEMOGLOBIN 14.5 g/dL (14.0-18.0); LYMPHOCYTES # (AUTO) 1.2 (1.0-3.2); LYMPHOCYTES % 6.6 % (18.0-39.1); MEAN CORPUSCULAR HEMOGLOBIN 31.3 pg (28-32); MEAN CORPUSCULAR HGB CONC 33.7 g/dL (31-35); MEAN CORPUSCULAR VOLUME 92.7 fL (81-99); MONOCYTES % 5.1 % (4.4-11.3); NEUTROPHILS # (AUTO) 15.1 (2.1-6.9); NEUTROPHILS % 81.8 % (38.7-80.0); PLATELET COUNT 222 x10e3/uL (140-360); RED BLOOD COUNT 4.64 x10e6/uL (4.3-5.7); RED CELL DISTRIBUTION WIDTH 12.2 % (11.7-14.4)
[2021-01-17 05:15] LABS: ANION GAP 13.2 mmol/L (8-16); CALCIUM 8.7 mg/dL (8.4-10.2); CREATININE, SERUM 0.76 mg/dL (0.72-1.25); POTASSIUM 4.2 mmol/L (3.5-5.1)
[2021-01-17] MEDS: METRONIDAZOLE 500MG/NS 100ML 100 ML IV SCH ×3 (06:24→21:20)
[2021-01-17] MEDS: ALBUTEROL SULFATE HFA 8GM INHALATION AEROSOL INH SCH (07:00)
[2021-01-17] MEDS: FAMOTIDINE 20 MG TAB PO SCH ×2 (07:30→16:30)
[2021-01-17] MEDS: INSULIN REGULAR, HUMAN 100 UNIT/1 ML SQ SCH ×4 (07:30→21:00)
[2021-01-17 09:08] LABS: BAND NEUTROPHILS % (MANUAL) 1 %; LYMPHOCYTES % (MANUAL) 6 % (19-48); MONOCYTES % (MANUAL) 3 % (3.4-9.0); NEUTROPHILS % (MANUAL) 88 % (40-74)
[2021-01-17 09:09] LABS: PLATELET ESTIMATE ADEQUATE; PLATELET MORPHOLOGY COMMENT NORMAL; RBC MORPHOLOGY COMMENT NORMAL
[2021-01-17] MEDS: CEFEPIME 2 GM in SODIUM CHLORIDE 0.9% 100 ML IV SCH ×2 (09:30→21:00)
[2021-01-17] MEDS: DEXAMETHASONE SOD PHOS 10 MG/1 ML VIAL IV SCH (09:33)
[2021-01-17] MEDS: ASCORBIC ACID 500 MG TAB PO SCH (09:33)
[2021-01-17] MEDS: ENOXAPARIN SOD INJ 40 MG/0.4 ML SYR SC SCH ×2 (09:33→21:00)
[2021-01-17] MEDS: BENZONATATE 100 MG CAP PO PRN (14:10)
[2021-01-18] VITALS (7 sets, daily range): BP systolic 114–130; BP diastolic 77–85
[2021-01-18] MEDS: BENZONATATE 100 MG CAP PO PRN ×2 (00:19→23:53)
[2021-01-18 05:22] LABS: BASOPHILS % 0.1 % (0.0-1.0); EOSINOPHILS % 0.1 % (0.0-6.0); HEMATOCRIT 42.7 % (38.2-49.6); HEMOGLOBIN 14.3 g/dL (14.0-18.0); LYMPHOCYTES # (AUTO) 0.8 (1.0-3.2); LYMPHOCYTES % 5.2 % (18.0-39.1); MEAN CORPUSCULAR HEMOGLOBIN 31.1 pg (28-32); MEAN CORPUSCULAR HGB CONC 33.5 g/dL (31-35); MEAN CORPUSCULAR VOLUME 92.8 fL (81-99); MONOCYTES # (AUTO) 0.8 (0.2-0.8); MONOCYTES % 5.2 % (4.4-11.3); NEUTROPHILS # (AUTO) 13.2 (2.1-6.9); NEUTROPHILS % 85.1 % (38.7-80.0); PLATELET COUNT 252 x10e3/uL (140-360); RED CELL DISTRIBUTION WIDTH 12.1 % (11.7-14.4)
[2021-01-18] MEDS: METRONIDAZOLE 500MG/NS 100ML 100 ML IV SCH ×3 (05:27→22:00)
[2021-01-18 06:08] LABS: CALCIUM 8.5 mg/dL (8.4-10.2); CREATININE, SERUM 0.75 mg/dL (0.72-1.25)
[2021-01-18] MEDS: ALBUTEROL SULFATE HFA 8GM INHALATION AEROSOL INH SCH ×2 (07:00→19:00)
[2021-01-18] MEDS: INSULIN REGULAR, HUMAN 100 UNIT/1 ML SQ SCH ×4 (07:30→21:00)
[2021-01-18] MEDS: ENOXAPARIN SOD INJ 40 MG/0.4 ML SYR SC SCH ×2 (09:40→21:00)
[2021-01-18] MEDS: FAMOTIDINE 20 MG TAB PO SCH ×2 (09:40→17:40)
[2021-01-18] MEDS: ASCORBIC ACID 500 MG TAB PO SCH (09:40)
[2021-01-18] MEDS: CEFEPIME 2 GM in SODIUM CHLORIDE 0.9% 100 ML IV SCH ×2 (09:40→21:00)
[2021-01-18] MEDS: ACETAMINOPHEN 325 MG TAB PO PRN (23:53)
[2021-01-19] VITALS (8 sets, daily range): BP systolic 97–135; BP diastolic 60–79
[2021-01-19] MEDS: METRONIDAZOLE 500MG/NS 100ML 100 ML IV SCH ×2 (06:00→13:20)
[2021-01-19] MEDS: ALBUTEROL SULFATE HFA 8GM INHALATION AEROSOL INH SCH ×2 (07:00→19:00)
[2021-01-19] MEDS: INSULIN REGULAR, HUMAN 100 UNIT/1 ML SQ SCH ×4 (07:30→21:00)
[2021-01-19] MEDS: ASCORBIC ACID 500 MG TAB PO SCH (07:55)
[2021-01-19] MEDS: ENOXAPARIN SOD INJ 40 MG/0.4 ML SYR SC SCH ×2 (07:55→21:00)
[2021-01-19] MEDS: CEFEPIME 2 GM in SODIUM CHLORIDE 0.9% 100 ML IV SCH ×2 (07:55→21:00)
[2021-01-19] MEDS: FAMOTIDINE 20 MG TAB PO SCH ×2 (07:55→16:37)
[2021-01-19] MEDS ORDERED: TOCILIZUMAB 400 MG in SODIUM CHLORIDE 0.9% 100 ML IV STA (11:51)
[2021-01-20] VITALS (8 sets, daily range): BP systolic 96–113; BP diastolic 52–70
[2021-01-20] MEDS: METRONIDAZOLE 500MG/NS 100ML 100 ML IV SCH ×4 (00:36→22:00)
[2021-01-20 05:28] LABS: BASOPHILS % 0.3 % (0.0-1.0); EOSINOPHILS # (AUTO) 0.3 (0.0-0.4); EOSINOPHILS % 2.1 % (0.0-6.0); HEMATOCRIT 44.6 % (38.2-49.6); HEMOGLOBIN 14.9 g/dL (14.0-18.0); LYMPHOCYTES % 8.2 % (18.0-39.1); MEAN CORPUSCULAR HEMOGLOBIN 30.9 pg (28-32); MEAN CORPUSCULAR HGB CONC 33.4 g/dL (31-35); MEAN CORPUSCULAR VOLUME 92.5 fL (81-99); MONOCYTES # (AUTO) 0.8 (0.2-0.8); MONOCYTES % 6.5 % (4.4-11.3); NEUTROPHILS # (AUTO) 9.7 (2.1-6.9); NEUTROPHILS % 80.9 % (38.7-80.0); PLATELET COUNT 219 x10e3/uL (140-360); RED BLOOD COUNT 4.82 x10e6/uL (4.3-5.7); RED CELL DISTRIBUTION WIDTH 12.2 % (11.7-14.4)
[2021-01-20 05:43] LABS: ANION GAP 14.6 mmol/L (8-16); CALCIUM 8.5 mg/dL (8.4-10.2); CREATININE, SERUM 0.69 mg/dL (0.72-1.25); POTASSIUM 3.6 mmol/L (3.5-5.1)
[2021-01-20] MEDS: INSULIN REGULAR, HUMAN 100 UNIT/1 ML SQ SCH ×4 (07:30→20:52)
[2021-01-20] MEDS: FAMOTIDINE 20 MG TAB PO SCH ×2 (09:27→16:56)
[2021-01-20] MEDS: ASCORBIC ACID 500 MG TAB PO SCH (09:27)
[2021-01-20] MEDS: CEFEPIME 2 GM in SODIUM CHLORIDE 0.9% 100 ML IV SCH ×2 (09:27→20:45)
[2021-01-20] MEDS: ENOXAPARIN SOD INJ 40 MG/0.4 ML SYR SC SCH ×2 (09:28→20:49)
[2021-01-20] MEDS: BENZONATATE 100 MG CAP PO PRN ×2 (13:55→22:31)
[2021-01-20] MEDS ORDERED: POTASSIUM CHLORIDE 20MEQ/100ML 100 ML IV ONE (16:30)
[2021-01-20] MEDS: AMIODARONE HCL 200 MG TAB PO SCH (16:56)
[2021-01-20] MEDS: ALBUTEROL SULFATE HFA 8GM INHALATION AEROSOL INH SCH (19:00)
[2021-01-21] VITALS (9 sets, daily range): BP systolic 86–114; BP diastolic 58–78
[2021-01-21] MEDS: METRONIDAZOLE 500MG/NS 100ML 100 ML IV SCH ×3 (06:22→20:42)
[2021-01-21] MEDS: ALBUTEROL SULFATE HFA 8GM INHALATION AEROSOL INH SCH ×2 (07:00→19:00)
[2021-01-21] MEDS: INSULIN REGULAR, HUMAN 100 UNIT/1 ML SQ SCH ×4 (07:30→20:42)
[2021-01-21] MEDS: FAMOTIDINE 20 MG TAB PO SCH ×2 (08:56→17:37)
[2021-01-21] MEDS: AMIODARONE HCL 200 MG TAB PO SCH ×2 (08:57→17:37)
[2021-01-21] MEDS: ASCORBIC ACID 500 MG TAB PO SCH (08:57)
[2021-01-21] MEDS: ENOXAPARIN SOD INJ 40 MG/0.4 ML SYR SC SCH ×2 (08:57→20:42)
[2021-01-21] MEDS: CEFEPIME 2 GM in SODIUM CHLORIDE 0.9% 100 ML IV SCH ×2 (08:57→20:42)
[2021-01-21] MEDS: BENZONATATE 100 MG CAP PO PRN ×2 (09:48→23:50)
[2021-01-21] MEDS ORDERED: LACTATED RINGER'S 1,000 ML INJ ONE (12:45)
[2021-01-21] MEDS: FLUCONAZOLE 200 MG/100 ML 100 ML IV SCH (13:11)
[2021-01-22] VITALS (8 sets, daily range): BP systolic 86–113; BP diastolic 52–81
[2021-01-22 05:57] LABS: BASOPHILS # (AUTO) 0.1 (0.0-0.1); BASOPHILS % 0.5 % (0.0-1.0); EOSINOPHILS # (AUTO) 0.2 (0.0-0.4); EOSINOPHILS % 1.8 % (0.0-6.0); HEMATOCRIT 40.2 % (38.2-49.6); HEMOGLOBIN 13.6 g/dL (14.0-18.0); LYMPHOCYTES % 9.3 % (18.0-39.1); MEAN CORPUSCULAR HEMOGLOBIN 31.2 pg (28-32); MEAN CORPUSCULAR HGB CONC 33.8 g/dL (31-35); MEAN CORPUSCULAR VOLUME 92.2 fL (81-99); MONOCYTES # (AUTO) 0.8 (0.2-0.8); MONOCYTES % 7.1 % (4.4-11.3); NEUTROPHILS # (AUTO) 8.7 (2.1-6.9); NEUTROPHILS % 79.9 % (38.7-80.0); PLATELET COUNT 232 x10e3/uL (140-360); RED BLOOD COUNT 4.36 x10e6/uL (4.3-5.7); RED CELL DISTRIBUTION WIDTH 12.3 % (11.7-14.4)
[2021-01-22] MEDS: METRONIDAZOLE 500MG/NS 100ML 100 ML IV SCH ×3 (06:05→21:36)
[2021-01-22 06:28] LABS: ANION GAP 11.8 mmol/L (8-16); CALCIUM 8.2 mg/dL (8.4-10.2); CREATININE, SERUM 0.67 mg/dL (0.72-1.25); POTASSIUM 3.8 mmol/L (3.5-5.1)
[2021-01-22] MEDS: INSULIN REGULAR, HUMAN 100 UNIT/1 ML SQ SCH ×4 (07:30→20:46)
[2021-01-22] MEDS: ALBUTEROL SULFATE HFA 8GM INHALATION AEROSOL INH SCH ×3 (07:55→21:36)
[2021-01-22] MEDS: FAMOTIDINE 20 MG TAB PO SCH ×2 (09:15→16:59)
[2021-01-22] MEDS: AMIODARONE HCL 200 MG TAB PO SCH ×2 (09:15→16:59)
[2021-01-22] MEDS: CEFEPIME 2 GM in SODIUM CHLORIDE 0.9% 100 ML IV SCH ×2 (09:15→20:46)
[2021-01-22] MEDS: ENOXAPARIN SOD INJ 40 MG/0.4 ML SYR SC SCH (09:15)
[2021-01-22] MEDS: ASCORBIC ACID 500 MG TAB PO SCH (09:15)
[2021-01-22] MEDS: FLUCONAZOLE 200 MG/100 ML 100 ML IV SCH (11:33)
[2021-01-22] MEDS: BENZONATATE 100 MG CAP PO PRN ×2 (16:59→23:57)
[2021-01-23] VITALS (8 sets, daily range): BP systolic 99–120; BP diastolic 53–84
[2021-01-23] MEDS: METRONIDAZOLE 500MG/NS 100ML 100 ML IV SCH ×3 (05:31→22:41)
[2021-01-23] MEDS: ALBUTEROL SULFATE HFA 8GM INHALATION AEROSOL INH SCH (05:38)
[2021-01-23] MEDS: FAMOTIDINE 20 MG TAB PO SCH ×2 (05:38→17:15)
[2021-01-23] MEDS: INSULIN REGULAR, HUMAN 100 UNIT/1 ML SQ SCH ×4 (07:30→21:13)
[2021-01-23] MEDS: AMIODARONE HCL 200 MG TAB PO SCH ×2 (11:58→17:15)
[2021-01-23] MEDS: CEFEPIME 2 GM in SODIUM CHLORIDE 0.9% 100 ML IV SCH ×2 (11:58→21:14)
[2021-01-23] MEDS: BARICITINIB 2 MG TABLET PO SCH (12:00)
[2021-01-23] MEDS: ASCORBIC ACID 500 MG TAB PO SCH (12:00)
[2021-01-23] MEDS: FLUCONAZOLE 200 MG/100 ML 100 ML IV SCH (13:37)
[2021-01-24] VITALS (7 sets, daily range): BP systolic 106–122; BP diastolic 72–81
[2021-01-24] MEDS: METRONIDAZOLE 500MG/NS 100ML 100 ML IV SCH ×2 (06:19→20:04)
[2021-01-24] MEDS: INSULIN REGULAR, HUMAN 100 UNIT/1 ML SQ SCH ×4 (07:30→21:00)
[2021-01-24] MEDS: FAMOTIDINE 20 MG TAB PO SCH ×2 (11:17→18:26)
[2021-01-24] MEDS: AMIODARONE HCL 200 MG TAB PO SCH ×2 (11:18→18:26)
[2021-01-24] MEDS: BARICITINIB 2 MG TABLET PO SCH (11:18)
[2021-01-24] MEDS: CEFEPIME 2 GM in SODIUM CHLORIDE 0.9% 100 ML IV SCH ×2 (11:19→21:40)
[2021-01-24] MEDS: ASCORBIC ACID 500 MG TAB PO SCH (11:20)
[2021-01-24] MEDS ORDERED: ENOXAPARIN SOD INJ 40 MG/0.4 ML SYR SC SCH (17:00)
[2021-01-24] MEDS: FLUCONAZOLE 200 MG/100 ML 100 ML IV SCH (18:26)
[2021-01-24] MEDS: ENOXAPARIN SOD INJ 40 MG/0.4 ML SYR SC SCH (21:41)
[2021-01-25] VITALS (8 sets, daily range): BP systolic 89–120; BP diastolic 63–83
[2021-01-25] MEDS: METRONIDAZOLE 500MG/NS 100ML 100 ML IV SCH ×4 (00:20→22:23)
[2021-01-25 05:42] LABS: BASOPHILS # (AUTO) 0.1 (0.0-0.1); BASOPHILS % 0.8 % (0.0-1.0); EOSINOPHILS # (AUTO) 0.2 (0.0-0.4); EOSINOPHILS % 1.9 % (0.0-6.0); HEMATOCRIT 41.4 % (38.2-49.6); LYMPHOCYTES # (AUTO) 1.2 (1.0-3.2); LYMPHOCYTES % 12.1 % (18.0-39.1); MEAN CORPUSCULAR HEMOGLOBIN 31.5 pg (28-32); MEAN CORPUSCULAR HGB CONC 33.8 g/dL (31-35); MONOCYTES % 9.9 % (4.4-11.3); NEUTROPHILS # (AUTO) 7.6 (2.1-6.9); NEUTROPHILS % 73.6 % (38.7-80.0); PLATELET COUNT 220 x10e3/uL (140-360); RED BLOOD COUNT 4.45 x10e6/uL (4.3-5.7); RED CELL DISTRIBUTION WIDTH 12.4 % (11.7-14.4)
[2021-01-25 06:22] LABS: ALBUMIN 3.2 g/dL (3.5-5.0); ANION GAP 15.3 mmol/L (8-16); CALCIUM 8.6 mg/dL (8.4-10.2); CREATININE, SERUM 0.76 mg/dL (0.72-1.25); POTASSIUM 4.3 mmol/L (3.5-5.1)
[2021-01-25] MEDS: INSULIN REGULAR, HUMAN 100 UNIT/1 ML SQ SCH ×4 (07:30→21:10)
[2021-01-25] MEDS: FAMOTIDINE 20 MG TAB PO SCH ×2 (08:24→17:24)
[2021-01-25] MEDS: AMIODARONE HCL 200 MG TAB PO SCH ×2 (08:25→17:24)
[2021-01-25] MEDS: ASCORBIC ACID 500 MG TAB PO SCH (08:25)
[2021-01-25] MEDS: BARICITINIB 2 MG TABLET PO SCH (08:26)
[2021-01-25] MEDS: CEFEPIME 2 GM in SODIUM CHLORIDE 0.9% 100 ML IV SCH ×2 (08:38→21:10)
[2021-01-25] MEDS: ENOXAPARIN SOD INJ 40 MG/0.4 ML SYR SC SCH ×2 (08:40→21:10)
[2021-01-25] MEDS: FLUCONAZOLE 200 MG/100 ML 100 ML IV SCH (14:04)
[2021-01-25] MEDS: ALBUTEROL SULFATE HFA 8GM INHALATION AEROSOL INH SCH (19:50)
[2021-01-25] MEDS ORDERED: SODIUM CHLORIDE 0.9% 250ML 250 ML ONE (21:15)
[2021-01-25] MEDS: BENZONATATE 100 MG CAP PO PRN (22:33)
[2021-01-26] VITALS (7 sets, daily range): BP systolic 90–132; BP diastolic 58–84
[2021-01-26] MEDS: ACETAMINOPHEN 325 MG TAB PO PRN (00:50)
[2021-01-26] MEDS: METRONIDAZOLE 500MG/NS 100ML 100 ML IV SCH ×2 (06:24→13:48)
[2021-01-26] MEDS: INSULIN REGULAR, HUMAN 100 UNIT/1 ML SQ SCH ×4 (07:30→21:10)
[2021-01-26] MEDS: FAMOTIDINE 20 MG TAB PO SCH ×2 (07:46→16:50)
[2021-01-26] MEDS: AMIODARONE HCL 200 MG TAB PO SCH (10:21)
[2021-01-26] MEDS: ASCORBIC ACID 500 MG TAB PO SCH (10:22)
[2021-01-26] MEDS: ENOXAPARIN SOD INJ 40 MG/0.4 ML SYR SC SCH ×2 (10:22→21:10)
[2021-01-26] MEDS: BARICITINIB 2 MG TABLET PO SCH (10:22)
[2021-01-26] MEDS: CEFEPIME 2 GM in SODIUM CHLORIDE 0.9% 100 ML IV SCH (10:31)
[2021-01-26] MEDS: BENZONATATE 100 MG CAP PO PRN ×2 (10:39→23:43)
[2021-01-26] MEDS: METHYLPREDNISOLONE SOD SUCC 40 MG/ML VIAL 1ML IV SCH ×2 (13:43→23:43)
[2021-01-26] MEDS: ALBUTEROL SULFATE HFA 8GM INHALATION AEROSOL INH SCH (20:00)
[2021-01-27] VITALS (8 sets, daily range): BP systolic 99–118; BP diastolic 69–89
[2021-01-27 05:09] LABS: BASOPHILS % 0.4 % (0.0-1.0); EOSINOPHILS % 0.1 % (0.0-6.0); HEMATOCRIT 42.4 % (38.2-49.6); HEMOGLOBIN 13.9 g/dL (14.0-18.0); LYMPHOCYTES # (AUTO) 0.8 (1.0-3.2); LYMPHOCYTES % 10.8 % (18.0-39.1); MEAN CORPUSCULAR HEMOGLOBIN 30.5 pg (28-32); MEAN CORPUSCULAR HGB CONC 32.8 g/dL (31-35); MEAN CORPUSCULAR VOLUME 93.2 fL (81-99); MONOCYTES # (AUTO) 0.2 (0.2-0.8); MONOCYTES % 3.1 % (4.4-11.3); NEUTROPHILS # (AUTO) 6.3 (2.1-6.9); NEUTROPHILS % 84.3 % (38.7-80.0); PLATELET COUNT 231 x10e3/uL (140-360); RED BLOOD COUNT 4.55 x10e6/uL (4.3-5.7); RED CELL DISTRIBUTION WIDTH 12.5 % (11.7-14.4)
[2021-01-27 05:32] LABS: ANION GAP 14.5 mmol/L (8-16); CALCIUM 9.2 mg/dL (8.4-10.2); CREATININE, SERUM 0.76 mg/dL (0.72-1.25); POTASSIUM 4.5 mmol/L (3.5-5.1)
[2021-01-27] MEDS: INSULIN REGULAR, HUMAN 100 UNIT/1 ML SQ SCH ×4 (07:30→21:00)
[2021-01-27] MEDS ORDERED: PREDNISONE 10 MG TAB PO SCH (09:00)
[2021-01-27] MEDS: FAMOTIDINE 20 MG TAB PO SCH ×2 (09:18→17:26)
[2021-01-27] MEDS: ENOXAPARIN SOD INJ 40 MG/0.4 ML SYR SC SCH ×2 (13:02→21:18)
[2021-01-27] MEDS: BARICITINIB 2 MG TABLET PO SCH (13:02)
[2021-01-27] MEDS: ASCORBIC ACID 500 MG TAB PO SCH (13:02)
[2021-01-27] MEDS: METHYLPREDNISOLONE SOD SUCC 40 MG/ML VIAL 1ML IV SCH (13:20)
[2021-01-27] MEDS: ALBUTEROL SULFATE HFA 8GM INHALATION AEROSOL INH SCH (20:00)
[2021-01-28] VITALS (8 sets, daily range): BP systolic 104–114; BP diastolic 74–83
[2021-01-28] MEDS: ALBUTEROL SULFATE HFA 8GM INHALATION AEROSOL INH SCH ×2 (07:00→19:00)
[2021-01-28] MEDS: INSULIN REGULAR, HUMAN 100 UNIT/1 ML SQ SCH ×4 (07:30→21:14)
[2021-01-28] MEDS: FAMOTIDINE 20 MG TAB PO SCH ×2 (07:30→16:59)
[2021-01-28 08:14] LABS: ALBUMIN 3.2 g/dL (3.5-5.0); ANION GAP 13.3 mmol/L (8-16); MAGNESIUM 2.5 MG/DL (1.3-2.1); POTASSIUM 4.3 mmol/L (3.5-5.1)
[2021-01-28 08:41] LABS: CREATININE, SERUM 0.73 mg/dL (0.72-1.25)
[2021-01-28] MEDS: ENOXAPARIN SOD INJ 40 MG/0.4 ML SYR SC SCH ×2 (08:57→21:00)
[2021-01-28] MEDS: BARICITINIB 2 MG TABLET PO SCH (08:57)
[2021-01-28] MEDS: ASCORBIC ACID 500 MG TAB PO SCH (08:57)
[2021-01-28] MEDS: METHYLPREDNISOLONE SOD SUCC 40 MG/ML VIAL 1ML IV SCH ×2 (12:06)
[2021-01-29] VITALS (8 sets, daily range): BP systolic 105–126; BP diastolic 72–84
[2021-01-29] MEDS: ALBUTEROL SULFATE HFA 8GM INHALATION AEROSOL INH SCH ×2 (07:00→20:00)
[2021-01-29] MEDS: INSULIN REGULAR, HUMAN 100 UNIT/1 ML SQ SCH ×4 (07:30→21:25)
[2021-01-29] MEDS: ENOXAPARIN SOD INJ 40 MG/0.4 ML SYR SC SCH ×2 (08:49→21:25)
[2021-01-29] MEDS: FAMOTIDINE 20 MG TAB PO SCH ×2 (08:49→18:30)
[2021-01-29] MEDS: BARICITINIB 2 MG TABLET PO SCH (08:49)
[2021-01-29] MEDS: ASCORBIC ACID 500 MG TAB PO SCH (08:49)
[2021-01-29] MEDS: METHYLPREDNISOLONE SOD SUCC 40 MG/ML VIAL 1ML IV SCH ×3 (13:45→23:45)
[2021-01-30] VITALS (8 sets, daily range): BP systolic 101–149; BP diastolic 75–88
[2021-01-30 06:23] LABS: BASOPHILS % 0.1 % (0.0-1.0); EOSINOPHILS % 0.1 % (0.0-6.0); HEMATOCRIT 41.7 % (38.2-49.6); HEMOGLOBIN 13.6 g/dL (14.0-18.0); LYMPHOCYTES # (AUTO) 1.2 (1.0-3.2); LYMPHOCYTES % 10.7 % (18.0-39.1); MEAN CORPUSCULAR HEMOGLOBIN 30.2 pg (28-32); MEAN CORPUSCULAR HGB CONC 32.6 g/dL (31-35); MEAN CORPUSCULAR VOLUME 92.5 fL (81-99); MONOCYTES # (AUTO) 0.4 (0.2-0.8); MONOCYTES % 3.5 % (4.4-11.3); NEUTROPHILS # (AUTO) 9.1 (2.1-6.9); NEUTROPHILS % 84.4 % (38.7-80.0); PLATELET COUNT 299 x10e3/uL (140-360); RED BLOOD COUNT 4.51 x10e6/uL (4.3-5.7); RED CELL DISTRIBUTION WIDTH 12.2 % (11.7-14.4)
[2021-01-30 06:52] LABS: CALCIUM 8.9 mg/dL (8.4-10.2); CREATININE, SERUM 0.74 mg/dL (0.72-1.25)
[2021-01-30] MEDS: INSULIN REGULAR, HUMAN 100 UNIT/1 ML SQ SCH ×4 (07:30→21:40)
[2021-01-30] MEDS: ENOXAPARIN SOD INJ 40 MG/0.4 ML SYR SC SCH ×2 (09:15→20:05)
[2021-01-30] MEDS: ASCORBIC ACID 500 MG TAB PO SCH (09:15)
[2021-01-30] MEDS: FAMOTIDINE 20 MG TAB PO SCH ×2 (09:15→17:22)
[2021-01-30] MEDS: METHYLPREDNISOLONE SOD SUCC 40 MG/ML VIAL 1ML IV SCH (13:17)
[2021-01-30] MEDS ORDERED: ALTEPLASE RECOMBINANT 2 MG/2 ML VIAL IV ONE (14:30)
[2021-01-30] MEDS: ALBUTEROL SULFATE HFA 8GM INHALATION AEROSOL INH SCH (19:00)
[2021-01-31] VITALS (8 sets, daily range): BP systolic 100–111; BP diastolic 66–80
[2021-01-31] MEDS: METHYLPREDNISOLONE SOD SUCC 40 MG/ML VIAL 1ML IV SCH ×2 (00:10→12:00)
[2021-01-31] MEDS: ALBUTEROL SULFATE HFA 8GM INHALATION AEROSOL INH SCH (07:00)
[2021-01-31] MEDS: FAMOTIDINE 20 MG TAB PO SCH ×2 (07:30→16:30)
[2021-01-31] MEDS: INSULIN REGULAR, HUMAN 100 UNIT/1 ML SQ SCH ×4 (07:30→21:30)
[2021-01-31] MEDS: ASCORBIC ACID 500 MG TAB PO SCH (09:40)
[2021-01-31] MEDS: ENOXAPARIN SOD INJ 40 MG/0.4 ML SYR SC SCH (09:40)
[2021-01-31] MEDS: ACETAMINOPHEN 325 MG TAB PO PRN (21:32)
[2021-01-31] MEDS: BENZONATATE 100 MG CAP PO PRN (21:32)
[2021-02-01] VITALS: BP 108/79
[2021-02-01] MEDS: METHYLPREDNISOLONE SOD SUCC 40 MG/ML VIAL 1ML IV SCH ×2 (00:23→12:00)
[2021-02-01 05:15] VITALS: BP 105/74
[2021-02-01] MEDS: ALBUTEROL SULFATE HFA 8GM INHALATION AEROSOL INH SCH (07:28)
[2021-02-01] MEDS: FAMOTIDINE 20 MG TAB PO SCH ×2 (07:30→16:05)
[2021-02-01] MEDS: INSULIN REGULAR, HUMAN 100 UNIT/1 ML SQ SCH ×3 (07:30→16:08)
[2021-02-01 08:14] VITALS: BP 114/80
[2021-02-01 08:20] VITALS: BP 114/80
[2021-02-01] MEDS: ASCORBIC ACID 500 MG TAB PO SCH (09:00)
[2021-02-01 11:03] VITALS: BP 107/67
[2021-02-01 15:25] VITALS: BP 104/74
[2021-02-01] MEDS ORDERED: ENOXAPARIN SOD INJ 40 MG/0.4 ML SYR SC SCH (17:00)
== END 2021-02-01 18:15 | DRG 871 ==
LOC: FSED 21:40 → ERHOLD 22:05 → MED/SURG3 23:25 → IMCU 01-10 22:32
PROVIDERS: ADMIT Internal Medicine; ATTEND Internal Medicine
PROC: 02HV33Z Insertion of Infusion Device into Superior Vena Cava, Percutaneous Approach (ICD-10-PCS; principal; 2021-01-08)
PROC: XW043E5 Introduction of Remdesivir Anti-infective into Central Vein, Percutaneous Approach, New Technology Group 5 (ICD-10-PCS; 2021-01-10)
PROC: XW043H5 Introduction of Tocilizumab into Central Vein, Percutaneous Approach, New Technology Group 5 (ICD-10-PCS; 2021-01-10)
DX: A41.89 Other specified sepsis (principal); U07.1 COVID-19; J12.82 Pneumonia due to coronavirus disease 2019; J96.01 Acute respiratory failure with hypoxia; I47.2 Ventricular tachycardia; I50.32 Chronic diastolic (congestive) heart failure; B37.89 Other sites of candidiasis; Z88.0 Allergy status to penicillin; E66.01 Morbid (severe) obesity due to excess calories; Z68.30 Body mass index [BMI] 30.0-30.9, adult; I11.0 Hypertensive heart disease with heart failure; R09.3 Abnormal sputum; E11.65 Type 2 diabetes mellitus with hyperglycemia; E11.649 Type 2 diabetes mellitus with hypoglycemia without coma
CPT/HCPCS: 36415; 36569; 71045; 71250; 80048; 80053; 82728; 82948; 83036; 83615; 83735; 85025; 86140; 87040; 87070; 87205; 87493; 93306; 94664; 96361; 96372; 99284; J0456; J0692; J1100; J1450; J1650; J1817; J1940; J2920; J2997; J3370; J3480; J7030; J7050; J7121; U0002